=== PATIENT | male | born 1940 | race Caucasian/White ===

== ENCOUNTER 2020-07-29 21:18 | Emergency (ER) | payer MEDICARE, OTHER ==
[~2020-07-29] VITALS: Ht 188 cm; Wt 116.5 kg
[2020-07-29 21:25] VITALS: BP 128/61
--- NOTE | 2020-07-29 22:01 | PHYS DOC ---
General Adult EDM: Chief Complaint: COUGH HPI: HPI: ".. My and I fell asleep in our recliner nurse yesterday... And when we woke up it was cold and we seem to be having a bit of a chill... I was feeling little bit off so I thought I did come in and get checked out..." Patient is a 79 year old male who presents with above hx and complaints subjective history of fever and chills. No recent travel or specific ill contacts. has history of Alzheimer's. Patient denies any recent travel outside the [facility]. Patient states he is normally healthy. Does have some complaints of arthritis, hypertension, diabetes, prostate enlargement, seasonal sinus complaints.. Has had a nonproductive cough since yesterday. Did have a short coughing spell tonight. Patient normally follows with Dr. Bryan. Review of Systems: Review of Systems: Constitutional: Denies fever or chills Eyes: Denies change in visual acuity HENT: Denies nasal congestion or sore throat Respiratory: Complains of cough Cardiovascular: Denies chest pain or edema GI: Denies abdominal pain, nausea, vomiting, bloody stools or diarrhea : Denies dysuria Musculoskeletal: Denies back pain or joint pain Integument: Denies rash Neurologic: Denies headache, focal weakness or sensory changes Endocrine: Denies polyuria or polydipsia Lymphatic: Denies swollen glands Psychiatric: Denies depression or anxiety Heart Score: HEART Score for Chest Pain: HEART Score for Chest Pain Response (Comments) Value History Slighlty/Non-Suspicious 0 ECG Nonspecific Repolarizatio 1 Age > 65 2 Risk Factors 1 or 2 Risk Factors 1 Total 4 Risk Factors: Risk Factors: DM, Current or recent (<one month) smoker, HTN, HLP, family history of CAD, obesity. Risk Scores: Score 0 - 3: 2.5% MACE over next 6 weeks - Discharge Home Score 4 - 6: 20.3% MACE over next 6 weeks - Admit for Clinical Observation Score 7 - 10: 72.7% MACE over next 6 weeks - Early Invasive Strategies Family History: Family History: has Alzheimer's also has a complaint of fever Current Medications: Current Meds: See nursing for home meds Allergies: Allergies: No known drug allergies Physical Exam: PE: Constitutional: no acute distress, non-toxic appearance. [] HENT: Normocephalic, atraumatic, bilateral external ears normal, oropharynx moist, no oral exudates, nose slightly swollen turbinates and clear rhinorrhea Eyes: PERRLA, EOMI, conjunctiva normal, no discharge. [] Neck: Normal range of motion, no tenderness, supple, no stridor. [] Cardiovascular:Heart rate regular rhythm, no murmur, occasional PVC on monitor monitor Lungs & Thorax: Bilateral breath sounds equal apex with few scattered wheezes on auscultation [] Abdomen: Bowel sounds normal, soft, no tenderness, no masses, no pulsatile masses. Large old surgery scar Skin: Warm, dry, no erythema, no rash. Poor turgor Back: No tenderness, no CVA tenderness. [] Extremities: No tenderness, no cyanosis, no clubbing, ROM intact, no edema. Arthritic changes Neurologic: Alert and oriented X 3, moves all extremities on request, has distal sensory,, no focal deficits noted. [] Psychologic: Affect anxious, judgement normal, mood normal. [] EKG: EKG: [][facility] My interpretation EKG shows a sinus bradycardia at 62 bpm. Right bundle branch block. No findings acute STEMI with contralateral changes. Does have low voltage. [address] [place] [id number] Radiology/Procedures: Radiology/Procedures: [][address] [address] IMAGING REPORT Signed PATIENT: JOHN ALARCON CACCOUNT: [id number] : 1940 LOCATION: ER AGE: 79 SEX: M EXAM STATUS: PRE ER ORD. PHYSICIAN: RADHA CAMPOVERDE MD REASON: cough PROCEDURE: CHEST PA & LATERAL Exam: Chest 2 views INDICATION: Cough TECHNIQUE: Frontal and lateral views the chest Comparisons: None FINDINGS: The cardiomediastinal silhouette and pulmonary vessels are within normal limits. The lung and pleural spaces are clear. IMPRESSION: No acute cardiopulmonary process. Electronically signed by: Nikunj Tovar MD (07/29/2020 10:39 PM) [facility] DICTATED AND SIGNED BY: NIKUNJ TOVAR MD DATE: 07/29/20 2239 CC: RADHA CAMPOVERDE MD; DAE BRYAN MD ~ Course & Med Decision Making: Course & Med Decision Making Pertinent Labs and Imaging studies reviewed. (See chart for details) Pt. refused further attempts at blood draw. Patient use MDI 2 puffs 4 times a day. Patient take Tylenol and ibuprofen for discomfort. Patient follow-up primary care. Return if he elects to allow blood draws. Recommend patient self isolate. Consider COVID testing after self- isolation for 10 days. Follow up with Dr. Bryan. Impression: 1. Viral syndrome [] Dragon Disclaimer: Elizabeth Disclaimer: This electronic medical record was generated, in whole or in part, using a voice recognition dictation system. Departure Departure: Disposition: 01 HOME/RESIDENCE PRIOR TO ADM Condition: STABLE Referrals: DAE BRYAN MD (PCP) Dragon Disclaimer This chart was dictated in whole or in part using Voice Recognition software in a busy, high-work load, and often noisy Emergency Department environment. It may contain unintended and wholly unrecognized errors or omissions. RADHA CAMPOVERDE MD Jul 29, 2020 22:01
[2020-07-29] MEDS ORDERED: ALBUTEROL SULFATE 8GM INHALER. INH ONE (22:15)
[2020-07-29] MEDS ORDERED: ASPIRIN CHEWABLE 81 MG TABLET. PO ONE (22:15)
--- NOTE | 2020-07-29 22:42 | RAD ---
Exam: Chest 2 views INDICATION: Cough TECHNIQUE: Frontal and lateral views the chest Comparisons: None FINDINGS: The cardiomediastinal silhouette and pulmonary vessels are within normal limits. The lung and pleural spaces are clear. IMPRESSION: No acute cardiopulmonary process. Electronically signed by: Nikunj Bridges MD (07/29/2020 10:39 PM) [facility]
--- NOTE | 2020-07-29 23:31 | EKG ---
[address] [address] Test Date: 2020-07-29 Test Time: 22:33:14 Pat Name: JOHN ALARCON Department: Room: Gender: M Manager Banking: LAWRENCE : 1940 Requested By: RADHA CAMPOVERDE Order Number: [id number] Reading MD: Measurements Intervals [place] Rate: 62 P: 90 NC: 206 QRS: 27 QRSD: 134 T: 31 QT: 458 QTc: 467 Interpretive Statements SINUS RHYTHM RIGHT BUNDLE BRANCH BLOCK ABNORMAL ECG RI6.02 No previous ECG available for comparison
[2020-07-30 00:41] LABS: BILIRUBIN,URINE NEG (NEG); CLARITY,URINE CLEAR; COLOR,URINE YELLOW; GLUCOSE,URINE NEG (NEG); NITRITE,URINE NEG (NEG); UROBILINOGEN,URINE 0.2 mg/dL (0.2 mg/dL)
[2020-07-30 00:42] LABS: BACTERIA,URINE FEW /HPF (0-FEW); RBC,URINE 0 /HPF (0-2); SQUAMOUS EPITHELIAL CELL,UR FEW /LPF; WBC,URINE 0 /HPF (0-4)
[2020-07-30 01:01] LABS: INFLUENZA A PATIENT NEGATIVE (NEGATIVE); INFLUENZA B PATIENT NEGATIVE (NEGATIVE)
== END 2020-07-30 01:10 | disposition home or self-care (01) ==
LOC: ER 21:18
DX: B34.9 Viral infection, unspecified (principal); M19.90 Unspecified osteoarthritis, unspecified site; I10 Essential (primary) hypertension; E11.9 Type 2 diabetes mellitus without complications; G30.9 Alzheimer's disease, unspecified
CPT/HCPCS: 71046; 81001; 87070; 87804; 87880; 93005; 94640; 99285; J7613; 94664

== ENCOUNTER → 2021-01-24 | Outpatient (CLI) | payer MEDICARE, OTHER ==
[2021-01-24 11:07] LABS: ALBUMIN 3.8 g/dL (3.4-5.0); CALCIUM 9.2 mg/dL (8.5-10.1); CREATININE 1.2 mg/dL (0.7-1.3); GFR 58.6; POTASSIUM 3.8 mmol/L (3.5-5.1); TOTAL BILIRUBIN 0.6 mg/dL (0.2-1.0); TOTAL PROTEIN 7.7 g/dL (6.4-8.2)
[2021-01-25 00:08] LABS: MICROALB RD UR 107.1 ug/mL (Not Estab.)
== END ==
LOC: LAB 10:15
PROVIDERS: ATTEND Internal Medicine
DX: E11.9 Type 2 diabetes mellitus without complications (principal)
CPT/HCPCS: 80053; 80061; 82043; 82570; 83036

== ENCOUNTER 2021-11-15 17:56 | Inpatient (IN) | payer MEDICARE, OTHER ==
[~2021-11-15] VITALS: Ht 188 cm; Wt 113.4 kg
[2021-11-15 18:48] LABS: BASO % 1 % (0-3); EOS % 0 % (0-3); HEMATOCRIT 40.9 % (39.0-53.0); HEMOGLOBIN 13.6 g/dL (13.0-17.5); LYMPH # 0.7 x10^3/uL (1.0-4.8); LYMPH % 8 % (24-48); MEAN CORPUSCULAR HEMOGLOBIN 30 pg (25-35); MEAN CORPUSCULAR HGB CONC 33 g/dL (31-37); MEAN CORPUSCULAR VOLUME 90 fL (79-100); MONO # 0.8 x10^3/uL (0.0-1.1); MONO % 10 % (0-9); NEUT # 6.6 x10^3uL (1.8-7.7); NEUT % 82 % (31-73); PLATELET COUNT 221 x10^3/uL (140-400); RED BLOOD COUNT 4.52 x10^6/uL (4.30-5.70); RED CELL DISTRIBUTION WIDTH 15.9 % (11.5-14.5); WHITE BLOOD COUNT 8.1 x10^3/uL (4.0-11.0)
[2021-11-15 18:59] LABS: CALCIUM 8.5 mg/dL (8.5-10.1); CREATININE 1.2 mg/dL (0.7-1.3); GFR 58.6; POTASSIUM 3.6 mmol/L (3.5-5.1)
[2021-11-15 19:05] LABS: ALBUMIN 3.5 g/dL (3.4-5.0); ALBUMIN/GLOBULIN RATIO 1.1 (1.0-1.7); TOTAL BILIRUBIN 0.5 mg/dL (0.2-1.0); TOTAL PROTEIN 6.6 g/dL (6.4-8.2)
--- NOTE | 2021-11-15 19:31 | RAD ---
EXAMINATION: CT head without IV contrast. INDICATION:80 years, Male, falling down, on blood thinner. COMPARISON: None TECHNIQUE: Spiral acquisition of contiguous images from the skull base to the vertex were obtained. S agittal and coronal 2D reformatted series were provided by the technologist. Soft tissue and bone win natacha algorithms were reviewed. Exposure: One or more of the following individualized dose reduction techniques were utilized for [facility] s examination: 1. Automated exposure control 2. Adjustment of the mA and/or kV according to patient size 3. Use of iterative reconstruction technique. FINDINGS: Neither mass, midline shift, intracranial hemorrhage, acute/subacute ischemic changes, nor extraaxial fluid collections are seen. Mild brain parenchymal volume loss. Mild supratentorial periventricular white matter hypodensities, indeterminate but most likely representing chronic microangiopathic disea se. The paranasal sinuses, mastoid air cells, and middle ears are clear.The orbital contents appear withi n normal limits. IMPRESSION: No evidence of acute intracranial abnormality. EXAMINATION: CT abdomen and pelvis without IV contrast. INDICATION:80 years, Male, syncope, falling down. TECHNIQUE: Axial CT images of the abdomen and pelvis were obtained. Coronal and sagittal reformatted performed. COMPARISON: None. Exposure: One or more of the following individualized dose reduction techniques were utilized for [facility] s examination: 1. Automated exposure control 2. Adjustment of the mA and/or kV according to patient size 3. Use of iterative reconstruction technique. FINDINGS: LOWER CHEST: Dependent subsegmental atelectasis. ABDOMEN/PELVIS: Within the limitation of noncontrast exam and motion artifact, Liver, spleen, and biliary ducts are unremarkable. Pancreatic atrophy with fat infiltration. Cholecys tectomy. Nodular thickening of the left adrenal gland without discrete nodule. Right adrenal gland is unremarkable. No hydronephrosis or nephrolithiasis in either kidney. Duplicated left renal collectin g system. Nonspecific bilateral perinephric fat stranding. Extensive colonic diverticulosis without acute diverticulitis. Normal appendix. Moderate amount of st ool in the rectum. No bowel obstruction. Focal wall thickening of the sigmoid colon without adjacent pericolonic fat stranding. Moderate aortoiliac atherosclerotic calcifications without dilatation. No lymphadenopathy. No pneumoperitoneum or ascites. Unremarkable urinary bladder. Prostatectomy. MUSCULOSKELETAL STRUCTURES: No acute osseous process. Multilevel degenerative changes in the lumbar spine. IMPRESSION: 1. No acute abnormality in the abdomen or pelvis. 2. Focal wall thickening of the sigmoid colon without adjacent inflammation, may relate to underdiste nded lumen. Recommend further evaluation with colonoscopy to exclude malignancy. 3. Extensive colonic diverticulosis without acute diverticulitis. 4. Moderate amount of stool in the rectum. - EXAMINATION: Chest radiograph. VIEWS: Single view COMPARISON: 07/29/2020 INDICATION:80 years, Male, trauma.. FINDINGS: Stable cardiomediastinal silhouette. No focal consolidation. No pleural effusion or pneumothorax. No acute osseous process. IMPRESSION: No acute cardiopulmonary process. Electronically signed by: Pina Oreilly MD (11/15/2021 7:29 PM) [facility]
--- NOTE | 2021-11-15 20:16 | EKG ---
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
[2021-11-15] MEDS ORDERED: CONTRAST GIVEN. MC PRN (21:00)
[2021-11-15] MEDS ORDERED: IOHEXOL 350 MG/ML 100 ML VIAL. IV ONE (21:30)
--- NOTE | 2021-11-15 21:48 | PHYS DOC ---
Past History Past Medical History: Arrhythmia, Diabetes, High Cholesterol, Hypertension Past Surgical History: Cholecystectomy, Other Additional Past Surgical Histo: prostatectom for cancer of prostate; wisdom teeth Alcohol Use: None Adult General Chief Complaint Chief Complaint: MECHANICAL FALL HPI HPI Patient is a 80-year-old male with a past medical history of diabetes, hypertension and hyperlipidemia who presents with a chief complaint generalized weakness and is legs and falling 2 times. Review of Systems Review of Systems Review of systems otherwise unremarkable except noted in HPI Current Medications Current Medications Current Medications Medications (Trade) Dose Ordered Sig/Lauren Start Time Stop Time Status Last Admin Dose Admin Iohexol (Omnipaque 350 Mg/ml) 100 ml 1X ONCE 11/15/21 21:30 11/15/21 21:31 DC 11/15/21 21:29 100 ML Allergies Allergies Allergies Coded Allergies Type Severity Reaction Last Updated Verified No Known Drug Allergies 07/29/20 No Physical Exam Physical Exam Constitutional: Well developed, well nourished, no acute distress, non-toxic appearance. [] HENT: Normocephalic, atraumatic, bilateral external ears normal, oropharynx moist, no oral exudates, nose normal. [] Eyes: PERRLA, EOMI, conjunctiva normal, no discharge. [] Neck: Normal range of motion, no tenderness, supple, no stridor. [] Cardiovascular:Heart rate regular rhythm, no murmur [] Lungs & Thorax: Bilateral breath sounds clear to auscultation [] Abdomen: Bowel sounds normal, soft, no tenderness, no masses, no pulsatile masses. [] Skin: Warm, dry, no erythema, no rash. [] Back: No tenderness, no CVA tenderness. [] Extremities: No tenderness, no cyanosis, no clubbing, ROM intact, no edema. [] Neurologic: Alert and oriented X 3, normal motor function, normal sensory function, able to sit lay down and sit up, able to stand but feels weak like he is going to fall, cranial nerves intact no focal deficits noted, NIH of 2 for bilateral lower extremity drift but does not hit bed. [] Psychologic: Affect normal, judgement normal, mood normal. [] Current Patient Data Vital Signs Vital Signs Date Time Temp Pulse Resp B/P (MAP) Pulse Ox O2 Delivery O2 Flow Rate FiO2 11/15/21 18:39 98.5 100 18 127/63 (84) 96 Lab Results Laboratory Tests Test 11/15/21 18:27 11/15/21 20:41 White Blood Count 8.1 x10^3/uL (4.0-11.0) Red Blood Count 4.52 x10^6/uL (4.30-5.70) Hemoglobin 13.6 g/dL (13.0-17.5) Hematocrit 40.9 % (39.0-53.0) Mean Corpuscular Volume 90 fL (79-100) Mean Corpuscular Hemoglobin 30 pg (25-35) Mean Corpuscular Hemoglobin Concent 33 g/dL (31-37) Red Cell Distribution Width 15.9 % (11.5-14.5) H Platelet Count 221 x10^3/uL (140-400) Neutrophils (%) (Auto) 82 % (31-73) H Lymphocytes (%) (Auto) 8 % (24-48) L Monocytes (%) (Auto) 10 % (0-9) H Eosinophils (%) (Auto) 0 % (0-3) Basophils (%) (Auto) 1 % (0-3) Neutrophils # (Auto) 6.6 x10^3uL (1.8-7.7) Lymphocytes # (Auto) 0.7 x10^3/uL (1.0-4.8) L Monocytes # (Auto) 0.8 x10^3/uL (0.0-1.1) Eosinophils # (Auto) 0.0 x10^3/uL (0.0-0.7) Basophils # (Auto) 0.0 x10^3/uL (0.0-0.2) Prothrombin Time 11.9 SEC (9.4-11.4) H Prothrombin Time INR 1.1 (0.9-1.1) Activated Partial Thromboplast Time 33 SEC (23-33) Sodium Level 139 mmol/L (136-145) Potassium Level 3.6 mmol/L (3.5-5.1) Chloride Level 99 mmol/L (98-107) Carbon Dioxide Level 29 mmol/L (21-32) Anion Gap 11 (6-14) Blood Urea Nitrogen 11 mg/dL (8-26) Creatinine 1.2 mg/dL (0.7-1.3) Estimated GFR (Cockcroft-Gault) 58.6 BUN/Creatinine Ratio 9 (6-20) Glucose Level 133 mg/dL (70-99) H Calcium Level 8.5 mg/dL (8.5-10.1) Total Bilirubin 0.5 mg/dL (0.2-1.0) Aspartate Amino Transferase (AST) 18 U/L (15-37) Alanine Aminotransferase (ALT) 20 U/L (16-63) Alkaline Phosphatase 80 U/L (46-116) Troponin I High Sensitivity 18 ng/L (4-75) Total Protein 6.6 g/dL (6.4-8.2) Albumin 3.5 g/dL (3.4-5.0) Albumin/Globulin Ratio 1.1 (1.0-1.7) D-Dimer ([place]) 1.03 mg/L (0.00-0.50) H EKG EKG [] Radiology/Procedures Radiology/Procedures [] FINDINGS: LOWER CHEST: Dependent subsegmental atelectasis. ABDOMEN/PELVIS: Within the limitation of noncontrast exam and motion artifact, Liver, spleen, and biliary ducts are unremarkable. Pancreatic atrophy with fat infiltration. Cholecystectomy. Nodular thickening of the left adrenal gland without discrete nodule. Right adrenal gland is unremarkable. No hydronephrosis or nephrolithiasis in either kidney. Duplicated left renal collecting system. Nonspecific bilateral perinephric fat stranding. Extensive colonic diverticulosis without acute diverticulitis. Normal appendix. Moderate amount of stool in the rectum. No bowel obstruction. Focal wall thickening of the sigmoid colon without adjacent pericolonic fat stranding. Moderate aortoiliac atherosclerotic calcifications without dilatation. No lymphadenopathy. No pneumoperitoneum or ascites. Unremarkable urinary bladder. Prostatectomy. MUSCULOSKELETAL STRUCTURES: No acute osseous process. Multilevel degenerative changes in the lumbar spine. IMPRESSION: 1. No acute abnormality in the abdomen or pelvis. 2. Focal wall thickening of the sigmoid colon without adjacent inflammation, may relate to underdistended lumen. Recommend further evaluation with colonoscopy to exclude malignancy. 3. Extensive colonic diverticulosis without acute diverticulitis. 4. Moderate amount of stool in the rectum. FINDINGS: Any determination of stenosis is based on NASCET criteria. Head CTA: ICA: No stenosis, occlusion or aneurysm. MCA: No stenosis, occlusion or aneurysm. AMOL: No stenosis, occlusion or aneurysm. SECURITY INVESTIGATOR: No stenosis, occlusion or aneurysm. Basilar artery: No stenosis, occlusion or aneurysm. Distal vertebral arteries: No stenosis, occlusion or aneurysm. CT angiogram neck: Aortic arch: Classic anatomy Common carotid arteries: No stenosis, occlusion or dissection. Internal carotid arteries: No stenosis, occlusion or dissection. External carotid arteries: Patent Vertebral arteries: No stenosis, occlusion or dissection. Imaged lung apices demonstrates minimal paraseptal emphysema in the right lung apex. Pleural-based punctate calcifications in the right side. Soft tissues appear normal. Bones: No pathologic osseous lesions. Multilevel degenerative changes in the spine. IMPRESSION: No arterial stenosis or occlusion within the head or neck. Heart Score C/O Chest Pain: No Risk Factors: Risk Factors: DM, Current or recent (<one month) smoker, HTN, HLP, family history of CAD, obesity. Risk Scores: Risk Factors: DM, Current or recent (<one month) smoker, HTN, HLP, family history of CAD, obesity. Course & Med Decision Making Course & Med Decision Making Patient is a 80-year-old male who presents with bilateral lower extremity weakness and falls today Vital signs notable for tachycardia. Physical exam noted above. Patient placed on the monitor with IV access established. EKG with a rate of 90, QRS of 132, QTc of 454, no STEMI but right bundle branch block and widened QRS. Troponin normal. Laboratory analysis not concerning. CT of the head normal. CTA of the head and neck not concerning. Chest x-ray nonconcerning. Patient alert and oriented no acute distress and otherwise asymptomatic except for feeling unsteady on his feet. Discussed all findings with family and recommended an MRI and neurologic consult given the fact that he still feels unsteady on his feet bilaterally. Family grateful, verbalized understanding and agreed with plan of admission. Discussed patient with hospitalist here at [facility] to admit for observation tonight and hopefully get him over for an MRI to [place] sometime tomorrow. Dr. Harrison agreed to this plan. [] Dragon Disclaimer Dragon Disclaimer This electronic medical record was generated, in whole or in part, using a voice recognition dictation system. Departure Departure: Impression: Primary Impression: Lower extremity weakness Disposition: HOME / SELF CARE / HOMELESS Admitting Physician: Leonora Grissom Condition: GOOD Referrals: DAE BRYAN MD (PCP) TOLU BYRD MD Nov 15, 2021 21:48
--- NOTE | 2021-11-15 22:04 | RAD ---
EXAMINATION: CTA HEAD AND NECK W/WO CONTRAST INDICATION:80 years, Male, gait ataxia, weakness. TECHNIQUE: After bolus of intravenous contrast, volumetric CT data acquisition was acquired of the he ad and neck. Multiplanar reconstruction images to include MIP and 3-D reconstruction images are submi tted. Exposure: One or more of the following individualized dose reduction techniques were utilized for thi s examination: 1. Automated exposure control 2. Adjustment of the mA and/or kV according to patient size 3. Use of iterative reconstruction technique. COMPARISON: None FINDINGS: Any determination of stenosis is based on NASCET criteria. Head CTA: ICA: No stenosis, occlusion or aneurysm. MCA: No stenosis, occlusion or aneurysm. AMOL: No stenosis, occlusion or aneurysm. SECTION REPAIRER: No stenosis, occlusion or aneurysm. Basilar artery: No stenosis, occlusion or aneurysm. Distal vertebral arteries: No stenosis, occlusion or aneurysm. CT angiogram neck: Aortic arch: Classic anatomy Common carotid arteries: No stenosis, occlusion or dissection. Internal carotid arteries: No stenosis, occlusion or dissection. External carotid arteries: Patent Vertebral arteries: No stenosis, occlusion or dissection. Imaged lung apices demonstrates minimal paraseptal emphysema in the right lung apex. Pleural-based pu nctate calcifications in the right side. Soft tissues appear normal. Bones: No pathologic osseous lesions. Multilevel degenerative changes in the spine. IMPRESSION: No arterial stenosis or occlusion within the head or neck. Electronically signed by: Pina Oreilly MD (11/15/2021 10:02 PM) [facility]
[2021-11-16 00:51] LABS: BILIRUBIN,URINE NEG (NEG); CLARITY,URINE CLEAR; COLOR,URINE YELLOW; GLUCOSE,URINE NEG (NEG); NITRITE,URINE POS (NEG); UROBILINOGEN,URINE 0.2 mg/dL (0.2 mg/dL)
[2021-11-16 00:52] LABS: BACTERIA,URINE MANY /HPF (0-FEW); SQUAMOUS EPITHELIAL CELL,UR MOD /LPF
[2021-11-16 01:34] VITALS: BP 107/57
[2021-11-16 05:42] VITALS: BP 119/61
[2021-11-16] MEDS ORDERED: METF10007 PO (06:35)
[2021-11-16] MEDS ORDERED: CHLO25TA9 PO (06:35)
[2021-11-16] MEDS ORDERED: GABA-585 PO (06:35)
[2021-11-16] MEDS ORDERED: LISI40TA6 PO (06:35)
[2021-11-16] MEDS ORDERED: PIOG30TA41 PO (06:35)
[2021-11-16] MEDS ORDERED: GUAI600T47 PO (06:35)
[2021-11-16] MEDS ORDERED: DABI150C PO (06:35)
[2021-11-16] MEDS ORDERED: ATOR40TA59 PO (06:35)
[2021-11-16] MEDS ORDERED: ASPI-889 PO (06:35)
[2021-11-16] MEDS ORDERED: SOTA80TA48 PO (06:35)
[2021-11-16] MEDS ORDERED: GLIM4TAB8 PO (06:35)
[2021-11-16 11:32] VITALS: BP 116/69
--- NOTE | 2021-11-16 11:52 | HP ---
DATE OF SERVICE: 11/16/2021 ADMIT DATE: 11/16/2021 ATTENDING PHYSICIAN: Dr. Harrison. CHIEF COMPLAINT: Weakness and falls. HISTORY OF PRESENT ILLNESS: The patient is a 80-year-old gentleman admitted through the ED with vague symptoms of generalized weakness in both legs and falling. He is diabetic. The workup in the ED was fairly unremarkable. CT of the head demonstrated no strokes or bleeds. The chest x-ray was clear. I did review his medication. Blood pressure was marginal. I suspect he is also a little orthostatic. He was admitted then for further treatment and evaluation. He has pain and weakness in the legs that is gradual. He is diabetic. I suspect he has diabetic neuropathy. A formal neurology consultation has been entertained. PAST MEDICAL HISTORY: Significant for type 2 diabetes, although he is in somewhat denial. He also has coronary artery disease, essential hypertension. CURRENT MEDICATIONS: As follows: He takes Pradaxa daily, Lipitor, Betapace, lisinopril, aspirin, Neurontin, chlorthalidone, guaifenesin, metformin, glimepiride and Actos. SOCIAL HISTORY: He is a nonsmoker, nondrinker. ALLERGIES: He has no known drug allergies. FAMILY HISTORY: Noncontributory. 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 His just of Alzheimer's dementia exactly a year ago. He has a daughter who lives close by. REVIEW OF SYSTEMS: All other systems reviewed and turned to be negative. He has a positive COVID test, which is an incidental finding. He has been fully vaccinated. He does not have COVID symptoms at this time, although he did test positive. PHYSICAL EXAMINATION: GENERAL: When I saw him, this is a pleasant elderly gentleman. VITAL SIGNS: Initial vital signs showed a blood pressure of 107/57, pulse is 94 and regular. He was afebrile, oxygen saturation 95% on room air. HEENT: Head is without trauma. Pupils are reactive. Sclerae nonicteric. Oropharynx clear. NECK: Supple, no bruits. LUNGS: Clear. CARDIOVASCULAR: Showed regular heart tones. ABDOMEN: Soft. EXTREMITIES: Without edema. NEUROLOGIC: He is able to move his legs up against gravity, but he cannot keep it up against pressure. He has 4+/5 strength. There is minimal edema. He is fully ambulatory, but he has generalized weakness. IMAGING STUDIES: As noted. PERTINENT LABORATORY STUDIES: His hemoglobin on admission was 13.6 grams, white count 8100. Chemistry panel unremarkable. Nonfasting blood sugar 133. Transaminases were normal. Troponin was negative. ASSESSMENT: 1. 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 2. Probable orthostatic hypotension. 3. Known coronary artery disease. 4. Chronic anticoagulation. 5. Essential hypertension. 6. Type 2 diabetes. PLAN: 1. Admit to the inpatient unit. 2. Formal neurology consultation to assess neuropathy. 3. Continue home meds. 4. I have held his lisinopril. 5. Long discussion with current issues regarding his expectations. He is angry and cannot accept the fact that he is getting older. I tried to explain to him that these are some conditions may be reversible. LUÍS DR: Nel TID: [id number] CC: Brennan Carrillo MD
[2021-11-16] MEDS: GABAPENTIN 100 MG CAPSULE. PO SCH ×2 (13:53→20:43)
[2021-11-16 16:29] VITALS: BP 107/66
[2021-11-16 19:47] VITALS: BP 113/62
[2021-11-16] MEDS: DABIGATRAN ETEXILATE 150 MG CAPSULE. PO SCH (20:43)
[2021-11-16] MEDS: ATORVASTATIN CALCIUM 20 MG TABLET PO SCH (20:43)
[2021-11-16] MEDS: SOTALOL 80 MG TABLET. PO SCH (20:43)
[2021-11-16 23:49] VITALS: BP 110/64
[2021-11-17 05:58] VITALS: BP 108/66
--- NOTE | 2021-11-17 07:34 | CONS ---
DATE OF CONSULTATION: 11/16/2021 NEUROLOGICAL CONSULTATION REFERRING PHYSICIAN: Dr. Harrison. REASON FOR CONSULTATION: Frequent falls and numbness of the toes. HISTORY OF PRESENT ILLNESS: This is a 80-year-old right-handed male who was admitted through Emergency Room after he presented with frequent falls on the day of admission. According to the patient, he fell 3 times yesterday. He complains of intermittent numbness and paresthesia of the toes. He denies any headaches, visual disturbances, slurred speech, weakness of the lower extremities, lower back pain or recent back injuries. According to the patient, he denies any symptoms prior to his fall. He said his leg just gave up on him while he was standing. Currently, he denies chest pain, shortness of breath or palpitation; however, he has been seen by documentum consultant at [facility] and he was told that a stress test and echocardiogram were negative. He does not have any cardiac catheterization, but he has history of coronary artery disease. PAST MEDICAL HISTORY: Significant for diabetes mellitus type 2, coronary artery disease, hypertension and hyperlipidemia. FAMILY HISTORY: His from Alzheimer's disease, otherwise noncontributory. SOCIAL HISTORY: The patient is . He smokes 1-2 packs of cigarettes daily. He used to be a heavier smoker of 4 packs daily. He denies alcohol drinking. CURRENT MEDICATIONS: Metformin 1000 mg b.i.d., Actos 30 mg daily, Amaryl 4 mg p.o. daily, aspirin 81 mg daily, Lipitor 40 mg daily, sotalol or Betapace 120 mg b.i.d., Mucinex 600 mg b.i.d., Pradaxa 150 mg b.i.d. and gabapentin 100 mg b.i.d. ALLERGIES: No known drug allergies. PHYSICAL EXAMINATION: GENERAL: Obese male in no acute distress. He weighs 115.2 kilos. VITAL SIGNS: Blood pressure 130/62, respiratory rate 18, pulse is 81, temperature 97.6, oxygen saturation 94% on room air. HEENT: Normocephalic, atraumatic. Otherwise unremarkable. NECK: Supple, negative for carotid bruit, lymphadenopathy or thyromegaly. LUNGS: Diminished breath sounds with scattered wheezing. CARDIOVASCULAR: Regular rate and rhythm, normal S1, S2. There is no S3, S4 or murmur. ABDOMEN: Soft. Bowel sounds positive. EXTREMITIES: Negative for cyanosis, clubbing or pedal edema. NEUROLOGIC: Mental status: The patient is alert and oriented x3. The speech is fluent. There is no language dysfunction. Memory, judgment and abstracting thinking are normal. The patient denies hallucination or delusion. Cranial nerves: Visual anderson are full. The pupils are reactive to light and accommodation. The extraocular movements are intact. There is no nystagmus. There is no facial motor or sensory deficit. Hearing is diminished bilaterally. The palate is elevated symmetrically. Sternocleidomastoid muscles are powerful bilaterally. The patient shrugs his shoulders symmetrically, protrudes his tongue in the midline without fasciculation or atrophy. Motor exam: No focal muscle bulk wasting. The tone is normal. The strength is 5/5 throughout. Sensory examination revealed normal pinprick, light touch, vibratory and position senses. Deep tendon reflexes were asymmetric and active with hyporeflexia of the Achilles responses. Gait: The stance is steady, but Romberg's sign is positive. The patient uses a walker for ambulation and the stance is steady with walker. LABORATORY DATA: CBC revealed white blood cells of 8.1 thousand, hemoglobin 13.6, hematocrit 40.9, platelet count 221,000. Chemistry revealed sodium of 139, potassium 3.6, chloride 99, CO2 of 29, BUN 11, creatinine 1.2, glucose 133, calcium 8.5, troponin level is 18. Urinalysis revealed a trace of urinary leukocyte esterase with white blood cells of 11-20, with many urine bacteria. Serology, rapid COVID is positive. IMAGING: Head CT scan revealed no evidence of acute intracranial process, but shows small vessel ischemic changes. A CT angio of the neck and head revealed no evidence of occlusion or aneurysms. Chest x-ray revealed no acute cardiopulmonary process and CT of the abdomen revealed focal wall thickening of the sigmoid colon with chronic diverticulosis without acute diverticulitis. IMPRESSION: 1. Longstanding history of diabetes mellitus with intermittent numbness and paresthesia of the toes, rule out diabetic peripheral neuropathy, may have contributed to the recurrent falls. Other etiology of his falls include orthostatic hypotension or medication side effects. 2. History of coronary artery disease; however, the patient has not had cardiac catheterization. 3. Multiple medical problems include hypertension, hyperlipidemia, gastroesophageal reflux disease, chronic smoking and chronic diverticulosis. 4. Positive COVID test. The patient is fully vaccinated and he is asymptomatic. We will await for PCR COVID test. RECOMMENDATIONS: 1. Continue with current management initiated by Dr. Harrison. 2. Await for COVID PCR test. 3. We will arrange for EMG/NCS of the lower extremities to rule out peripheral neuropathy. 4. Check blood pressure and pulse for possible orthostatic hypotension. 5. Physical therapy evaluation. 6. Await for urine culture to rule out urinary tract infection. NAOMI/SILVESTRE/KONRAD DR: Tab TID: [id number]
[2021-11-17] MEDS: ASPIRIN ENTERIC COATED 81 MG TABLET.DR. PO SCH (08:49)
[2021-11-17] MEDS: GABAPENTIN 100 MG CAPSULE. PO SCH ×3 (08:49→21:07)
[2021-11-17] MEDS: PIOGLITAZONE 15 MG TABLET. PO SCH (08:49)
[2021-11-17] MEDS: GLIMEPIRIDE 2 MG TABLET PO SCH (08:50)
[2021-11-17] MEDS: SOTALOL 80 MG TABLET. PO SCH ×3 (08:51→21:07)
[2021-11-17] MEDS: DABIGATRAN ETEXILATE 150 MG CAPSULE. PO SCH ×2 (08:52→21:07)
[2021-11-17 10:55] VITALS: BP 111/65
[2021-11-17] MEDS: guaiFENesin/CODEINE 100mg/10mg 5 ML LIQUID PO PRN ×2 (11:35→17:25)
[2021-11-17 15:11] VITALS: BP 118/68
[2021-11-17 19:20] VITALS: BP 123/68
[2021-11-17] MEDS: ATORVASTATIN CALCIUM 20 MG TABLET PO SCH (21:08)
--- NOTE | 2021-11-17 22:25 | PN ---
DATE: 11/17/2021 ATTENDING PHYSICIAN: Dr. Harrison. SUBJECTIVE: He is slightly better. He is still weak. He was able to ambulate with some assistance. He spoke with the physical therapy people. He is now agreeable to go to rehab facility. OBJECTIVE FINDINGS: VITAL SIGNS: Blood pressure this morning is still 108/66 mmHg, pulse is 78 and regular. He is afebrile and his oxygen saturation 92% on room air. HEENT: Head is without trauma. Pupils are reactive. Sclerae nonicteric. Oropharynx clear. NECK: Supple, no bruits. LUNGS: Clear. CARDIOVASCULAR: Showed regular heart tones. No gallops. ABDOMEN: Soft. EXTREMITIES: Show trace edema. NEUROLOGIC: Minimal weakness in both legs, not too severe. SKIN: Otherwise, warm and dry. ASSESSMENT: 1. A 80-year-old gentleman with weakness due to peripheral neuropathy, most likely on the basis of diabetes. 2. Orthostatic hypotension, slightly improved. 3. Known coronary artery disease. 4. Chronic anticoagulation. 5. Essential hypertension. 6. Type 2 diabetes. PLAN: 1. I took the liberty of decreasing his Betapace dose down from 120 mg down to 80 mg b.i.d. 2. We held his chlorthalidone. 3. Continue diabetic regimen. 4. We will look at various facilities for subacute rehabilitation. The deal breaker is going to be his COVID status. RONALD/EKT : RONALD/richard TID: [id number]
[2021-11-17 22:51] VITALS: BP 124/62
[2021-11-18] MEDS: guaiFENesin/CODEINE 100mg/10mg 5 ML LIQUID PO PRN ×4 (00:47→20:41)
--- NOTE | 2021-11-18 03:03 | PN ---
DATE: 11/17/2021 SUBJECTIVE: The patient denies any new medical or neurological complaints; however, he continues to have generalized weakness. The patient stated he has been working with physical therapy today. He denies chest pain, shortness of breath or palpitation, dysarthria or dysphagia. The patient continued to have the tingling of the toes. OBJECTIVE: GENERAL: Well-developed, well-nourished male, in no acute distress. VITAL SIGNS: Temperature is 99.8, respiratory rate 20, pulse is 69 and regular, oxygen saturation 94% on room air and blood pressure 123/68. HEENT: Normocephalic, atraumatic, otherwise unremarkable. NECK: Supple. Negative for carotid bruit, lymphadenopathy or thyromegaly. LUNGS: With diminished breath sounds and intermittent wheezing and crackles also heard. CARDIOVASCULAR: Regular rate and rhythm. Normal S1, S2. ABDOMEN: Soft. Bowel sounds positive. EXTREMITIES: Negative for cyanosis, clubbing or pedal edema. NEUROLOGICAL: Normal mental status and intact cranial nerves. There is no focal motor or sensory deficit. Deep tendon reflexes were symmetric and hypoactive at 1/4 throughout. Deep tendon reflexes were symmetric and active with hyperreflexia of the Achilles responses. Gait: The stance is steady, but Romberg stance is positive. The patient uses a walker for ambulation. IMPRESSION: 1. Numbness and paresthesia of the feet in a patient with diabetes mellitus type 2, may represent early peripheral neuropathy. 2. Coronary artery disease, hypertension, hyperlipidemia. 3. Positive COVID test. RECOMMENDATIONS: 1. We will continue with current management initiated by Dr. Harrison. 2. Physical therapy as tolerated. 3. We will increase gabapentin to 100 mg 3 times daily and increase it gradually to 300 mg t.i.d. within coming one week or so. KOKO DR: Tab TID: [id number]
[2021-11-18 06:09] VITALS: BP 118/65
[2021-11-18 08:08] VITALS: BP 123/65
[2021-11-18] MEDS: SOTALOL 80 MG TABLET. PO SCH ×2 (08:08→20:42)
[2021-11-18] MEDS: GABAPENTIN 100 MG CAPSULE. PO SCH ×3 (08:08→20:42)
[2021-11-18] MEDS: DABIGATRAN ETEXILATE 150 MG CAPSULE. PO SCH ×2 (08:08→20:41)
[2021-11-18] MEDS: GLIMEPIRIDE 2 MG TABLET PO SCH (08:08)
[2021-11-18] MEDS: ASPIRIN ENTERIC COATED 81 MG TABLET.DR. PO SCH (08:08)
[2021-11-18] MEDS: PIOGLITAZONE 15 MG TABLET. PO SCH (08:10)
[2021-11-18] MEDS: metFORMIN 500 MG TABLET PO SCH ×2 (08:10→18:12)
[2021-11-18 11:00] VITALS: BP 118/58
--- NOTE | 2021-11-18 13:40 | PN ---
DATE: 11/18/2021 ATTENDING PHYSICIAN: Dr. Harrison. SUBJECTIVE: Feeling better. He is up ambulating. Legs are still a bit weak, but he is fairly independent. OBJECTIVE FINDINGS: VITAL SIGNS: Blood pressure this morning is 123/65, pulse is 68 and regular. He is afebrile. Oxygen saturation 97% on room air. HEENT: Head is without trauma. Pupils are reactive. Sclerae nonicteric. Oropharynx clear. NECK: Supple, no bruits. LUNGS: Clear. CARDIOVASCULAR: Regular heart tones. ABDOMEN: Soft. EXTREMITIES: Without edema. NEUROLOGIC: Focally intact. ASSESSMENT: 1. A 80-year-old gentleman with profound weakness due to diabetic neuropathy. 2. Cardiac arrhythmias. 3. Hypotension due to diuretics and meds. 4. Known coronary artery disease. 5. Chronic anticoagulation. 6. Essential hypertension. 7. Type 2 diabetes. 8. Asymptomatic COVID infection with the Omicron variant. PLAN: 1. He feels better with decreasing the Betapace dose from 120 mg b.i.d. to 80 mg b.i.d. 2. He feels better since we stopped his chlorthalidone. 3. Continue diabetic regimen. 4. Recs per physical therapy. 5. He has been approved for subacute rehab, but because of his COVID status, they want him quarantine for 10 days and will not be able to accept him until 11/25. Tentative plans are for discharge home with help through his family and paid assistance home health. Tentative discharge Saturday. We are still adjusting his medication. In addition, Recs per physical therapy. RONALD/DURGA/CANDACE DR: RONALD/richard TID: [id number] CC: Brennan Carrillo MD
[2021-11-18 15:00] VITALS: BP 122/64
[2021-11-18 19:22] VITALS: BP 124/73
[2021-11-18] MEDS: ATORVASTATIN CALCIUM 20 MG TABLET PO SCH (20:42)
--- NOTE | 2021-11-18 21:19 | PN ---
SUBJECTIVE: The patient denies any new medical or neurological complaints. He is very active and he did walk in the maier 7 times. He denies any new medical or neurological complaints. He continues to have intermittent numbness and paresthesia of the toes. The patient stated taking gabapentin 3 times a day, is somewhat helpful. He likes to continue with the same medication. OBJECTIVE: GENERAL: Well-developed, well-nourished male in no acute distress. VITAL SIGNS: Blood pressure 122/64, respiratory rate 20, pulse is 68, temperature is 97.1 and oxygen saturation 97% on room air. HEENT: Normocephalic, atraumatic. Otherwise unremarkable. NECK: Supple, negative for carotid bruit, lymphadenopathy or thyromegaly. LUNGS: Clear to A and P. CARDIOVASCULAR: Regular rhythm. Normal S1, S2. There is no S3, S4 or murmur. ABDOMEN: Soft. Bowel sounds positive. EXTREMITIES: Negative for cyanosis, clubbing or pedal edema. NEUROLOGIC: Mental status: The patient is alert and oriented x 3. The speech is fluent. There is no language dysfunction. Memory, judgment and abstracting thinking are normal. The patient denies hallucination or delusion. Cranial nerves are intact. No focal motor or sensory deficit. Deep tendon reflexes were symmetric and active without pathology responses. The gait is steady. Romberg stance is positive. The patient uses a walker for ambulation. IMPRESSION: 1. Numbness and paresthesia of the feet, likely due to underlying diabetic neuropathy. 2. Multiple medical problems include diabetes mellitus, hypertension and hyperlipidemia. 3. Positive COVID test on day of admission. RECOMMENDATIONS: 1. Continue with current management initiated by Dr. Harrison. 2. Physical therapy as tolerated. 3. We will arrange for EMG/NCS of the lower extremities to rule out peripheral neuropathy versus lumbosacral radiculopathy. The patient is neurologically stable. NAOMI/SILVESTRE CAAL: Tab TID: [id number]
[2021-11-18 22:45] VITALS: BP 18/69
[2021-11-19] MEDS: guaiFENesin/CODEINE 100mg/10mg 5 ML LIQUID PO PRN ×5 (04:15→22:09)
[2021-11-19 05:00] VITALS: BP 122/70
[2021-11-19] MEDS: SOTALOL 80 MG TABLET. PO SCH ×2 (08:36→20:20)
[2021-11-19] MEDS: ASPIRIN ENTERIC COATED 81 MG TABLET.DR. PO SCH (08:36)
[2021-11-19] MEDS: PIOGLITAZONE 15 MG TABLET. PO SCH (08:36)
[2021-11-19] MEDS: GLIMEPIRIDE 2 MG TABLET PO SCH (08:36)
[2021-11-19] MEDS: metFORMIN 500 MG TABLET PO SCH ×2 (08:36→17:00)
[2021-11-19] MEDS: DABIGATRAN ETEXILATE 150 MG CAPSULE. PO SCH ×2 (08:36→20:20)
[2021-11-19] MEDS: GABAPENTIN 100 MG CAPSULE. PO SCH ×3 (08:37→20:20)
--- NOTE | 2021-11-19 10:01 | PN ---
DATE: 11/19/2021 ATTENDING PHYSICIAN: Dr. Harrison. SUBJECTIVE: He is doing better. He is up and ambulating independently with a walker without any assistance. Strength in his legs has improved. OBJECTIVE FINDINGS: VITAL SIGNS: Blood pressure this morning is 122/70 mmHg, he is afebrile, pulse 57 and regular and his oxygen saturations are 96% on room air. HEENT: Head is without trauma. Pupils are reactive. Sclerae are nonicteric. Oropharynx clear. NECK: Supple. No bruits. LUNGS: Clear. CARDIOVASCULAR: Regular heart tones. ABDOMEN: Soft. EXTREMITIES: Show no cyanosis. LABORATORY DATA: His nonfasting blood sugar this morning was 105 mg/dL. ASSESSMENT: 1. A 80-year-old gentleman with diabetic neuropathy and profound weakness, improving. 2. Cardiac arrhythmias. 3. Hypotension due to diuretics and his cardiac meds. 4. Known coronary artery disease. 5. Type 2 diabetes. 6. Essential hypertension. 7. Asymptomatic COVID infection with Omicron variant, he is asymptomatic. PLAN: 1. I have reviewed his meds. He is better since his Betapace was decreased. 2. Continue physical therapy. 3. Diuretics held. 4. Tentative discharge plan home tomorrow with some home health care. He will consider going to rehab in a week following quarantine. [facility] has accepted him, but they want him quarantine because of his COVID status. RONALD/RENETTA DR: RONALD/rihcard TID: [id number] CC: Brennan Carrillo
[2021-11-19 12:14] VITALS: BP 117/67
[2021-11-19 15:00] VITALS: BP 132/70
[2021-11-19 19:30] VITALS: BP 119/61
[2021-11-19] MEDS: ATORVASTATIN CALCIUM 20 MG TABLET PO SCH (20:21)
[2021-11-20] MEDS: guaiFENesin/CODEINE 100mg/10mg 5 ML LIQUID PO PRN ×2 (05:42→09:05)
[2021-11-20 07:00] VITALS: BP 117/66
[2021-11-20 09:04] VITALS: BP 119/61
[2021-11-20] MEDS: PIOGLITAZONE 15 MG TABLET. PO SCH (09:04)
[2021-11-20] MEDS: SOTALOL 80 MG TABLET. PO SCH (09:04)
[2021-11-20] MEDS: GLIMEPIRIDE 2 MG TABLET PO SCH (09:05)
[2021-11-20] MEDS: metFORMIN 500 MG TABLET PO SCH (09:05)
[2021-11-20] MEDS: DABIGATRAN ETEXILATE 150 MG CAPSULE. PO SCH (09:05)
[2021-11-20] MEDS: GABAPENTIN 100 MG CAPSULE. PO SCH (09:05)
[2021-11-20] MEDS: ASPIRIN ENTERIC COATED 81 MG TABLET.DR. PO SCH (09:05)
--- NOTE | 2021-11-20 09:17 | DS ---
DATE OF DISCHARGE: 11/20/2021 ATTENDING PHYSICIAN: Dr. Harrison. FINAL DISCHARGE DIAGNOSES: 1. A 80-year-old gentleman with diabetic neuropathy with associated peripheral lower extremity weakness. 2. Cardiac arrhythmia, stable. 3. Essential hypertension. He was a bit hypotensive due to diuretics. 4. Known coronary artery disease. 5. Type 2 diabetes with stable blood sugars. 6. Essential hypertension. 7. Asymptomatic and incidental COVID infection with the Omicron variant. He was totally asymptomatic. HISTORY AND PHYSICAL: The patient, age 80, has diabetes, high blood pressure, cardiac arrhythmia. He was weak, getting frequent falls. He was admitted for further treatment and evaluation. We did believe that he has a peripheral neuropathy. PHYSICAL EXAMINATION: Please see the dictated note. PERTINENT LABORATORY AND X-RAY STUDIES: Prior to discharge, his hemoglobin was 13.6 g/dL with a white count of 8100. Electrolytes within normal range. Creatinine is 1.2 mg/dL. Nonfasting blood sugar in the low 100s. Transaminases were normal. Cardiac enzymes negative for coronary ischemia. The patient was admitted. I took the liberty of stopping his chlorthalidone with much improvement. In addition, I decreased his Betapace dose from 120 mg b.i.d. down to 80 mg b.i.d. His heart rate was monitored and quite normal. Neurology consultation was entertained. Dr. Shook's recommendation on the chart. He recommended outpatient followup and electromyogram at that time. This can be set up as an outpatient. We asked Physical Therapy to see him and they made good progress. He was able to ambulate independently with the aid of a walker. He already has a walker and a handicap sticker at home. He was agreeable to go to a subacute rehab at a local facility. Because of his asymptomatic COVID status, they recommended quarantine. Therefore, he will be scheduled to go after 11/25/2021. He is discharged home today with new scripts for Betapace 80 mg now b.i.d., stopping the chlorthalidone altogether. He should continue his Pradaxa 150 mg b.i.d., aspirin one daily, Lipitor 40 mg daily, Neurontin 100 mg p.o. t.i.d., glimepiride 4 mg daily, lisinopril 40 mg daily, metformin 1000 mg b.i.d., Actos 30 mg daily. Once again, we stopped his chlorthalidone and we decreased his Betapace dose down from 120 b.i.d. to 80 b.i.d. The patient was then discharged from our hospital in stable condition with explicit instructions and followup care. Eventually, if he is still needing rehabilitation, he should be able to go after 11/25. Total discharge time spent [address]: Nel TID: [id number] CC: Brennan Carrillo
--- NOTE | 2021-11-21 02:04 | PN ---
DATE: 11/20/2021 SUBJECTIVE: The patient denies any new medical or neurological complaints. He continues to have intermittent numbness and paresthesia of the feet. OBJECTIVE: GENERAL: A well-developed, well-nourished male in no acute distress. VITAL SIGNS: Blood pressure is 170/66, respiratory rate 20, pulse is 60, temperature 98.1, oxygen saturation 95% on room air. HEENT: Normocephalic, atraumatic, otherwise unremarkable. NECK: Supple, negative for carotid bruit, lymphadenopathy or thyromegaly. LUNGS: Clear to A and P. CARDIOVASCULAR: Regular rate and rhythm, normal S1, S2. There is no S3, S4 or murmur. ABDOMEN: Soft. Bowel sounds positive. EXTREMITIES: Negative for cyanosis, clubbing or pedal edema. NEUROLOGIC: Mental status: The patient is alert and oriented x 3. Speech is fluent. There is no language dysfunction. Memory, judgment and abstracting thinking are normal. The patient denies hallucination or delusion. Cranial nerves are intact. No focal motor or sensory deficit. Motor examination revealed no focal muscle bulk wasting. The tone is normal. The strength 5/5 throughout. Sensory examination revealed a normal pinprick, light touch, vibratory and position senses. Deep tendon reflexes were symmetric and active without pathology responses. Gait and coordination were normal, but the Romberg sign is positive. IMPRESSION: 1. Intermittent numbness and paresthesia of the feet, probably due to diabetic peripheral neuropathy. 2. Multiple medical problems include diabetes mellitus, hypertension, hyperlipidemia. 3. Positive COVID test on day of admission without significant symptoms except for sore throat and generalized weakness. RECOMMENDATIONS: 1. We will continue with current management initiated by Dr. Harrison. 2. We will arrange for EMG/NCS of the lower extremities to rule out peripheral neuropathy versus entrapment neuropathy in the lower extremities and possible diabetic neuropathy. The patient is neurologically stable. Continue with current home medications including gabapentin 100 mg t.i.d. 3. We will follow the patient up as outpatient and probably adjust his gabapentin dose to 300 mg t.i.d. gradually. NAOMI/EMMANUEL DR: NAOMI/richard TID: [id number]
== END 2021-11-20 09:35 | disposition home or self-care (01) | DRG 73 ==
LOC: ER 17:56 → 1 SOUTH 11-16 00:28
PROVIDERS: ADMIT Hospitalist; ATTEND Hospitalist
DX: E11.42 Type 2 diabetes mellitus with diabetic polyneuropathy (principal); U07.1 COVID-19; I95.2 Hypotension due to drugs; E78.00 Pure hypercholesterolemia, unspecified; I10 Essential (primary) hypertension; F17.210 Nicotine dependence, cigarettes, uncomplicated; E78.5 Hyperlipidemia, unspecified; T50.2X5A Adverse effect of carbonic-anhydrase inhibitors, benzothiadiazides and other diuretics, initial encounter; I25.10 Atherosclerotic heart disease of native coronary artery without angina pectoris; I49.9 Cardiac arrhythmia, unspecified; R26.81 Unsteadiness on feet; I45.10 Unspecified right bundle-branch block; K21.9 Gastro-esophageal reflux disease without esophagitis; K57.30 Diverticulosis of large intestine without perforation or abscess without bleeding; R29.6 Repeated falls; Z85.46 Personal history of malignant neoplasm of prostate; Z82.49 Family history of ischemic heart disease and other diseases of the circulatory system; Z82.0 Family history of epilepsy and other diseases of the nervous system; Z83.49 Family history of other endocrine, nutritional and metabolic diseases; Z79.01 Long term (current) use of anticoagulants; Y92.89 Other specified places as the place of occurrence of the external cause; Z90.49 Acquired absence of other specified parts of digestive tract
CPT/HCPCS: 36415; 70450; 70496; 70498; 71045; 74176; 80053; 81001; 82947; 84484; 85025; 85379; 85610; 85730; 87086; 87426; 93005; 99406; Q9967; 97110; 97116; 97530; 97535; 99285-25

== ENCOUNTER 2021-11-22 18:21 | Emergency (ER) | payer MEDICARE, OTHER ==
[~2021-11-22] VITALS: Ht 188 cm; Wt 109.0 kg
[~2021-11-22 18:21] MED LIST: ASPI-889 PO; ATOR40TA59 PO; CHLO25TA9 PO; DABI150C PO; GABA-585 PO; GLIM4TAB8 PO; GUAI600T47 PO; LISI40TA6 PO; METF10007 PO; PIOG30TA41 PO; SOTA80TA48 PO
[2021-11-22] MEDS ORDERED: IPRATRPIUM/ALBUTEROL 0.5/2.5MG 3 ML NEBU. NEB ONE (18:45)
--- NOTE | 2021-11-22 18:52 | PHYS DOC ---
Past History Past Medical History: Arrhythmia, Diabetes, High Cholesterol, Hypertension Additional Past Medical Histor: RBBB (KEITH RUTHERFORD) Past Surgical History: Cholecystectomy, Other Additional Past Surgical Histo: prostatectomy for cancer of prostate; wisdom teeth (KEITH RUTHERFORD) Smoking: Quit Less Than 1 Year Additional Smoking Information: off and on smoker throughout adulthood Alcohol Use: None (KEITH RUTHERFORD) General Adult EDM: Chief Complaint: SHORTNESS OF BREATH HPI: HPI: Patient is a 80 year old male who presents with shortness of breath and cough. 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 He had an incidental positive COVID-19 test on admission. Patient has an intermittent smoking history x >50 years. Since his discharge from the hospital, he states that the only change in his symptomology is presence of shortness of breath. Patient states he was completely asymptomatic during his admission. Lisinopril is among his daily medications. He has no other complaints. (KEITH RUTHERFORD) Review of Systems: Review of Systems: ROS negative or noncontributory except as mentioned in HPI. (KEITH RUTHERFORD) Current Medications: Current Meds: Current Medications Medications (Trade) Dose Ordered Sig/Lauren Start Time Stop Time Status Last Admin Dose Admin Albuterol/ Ipratropium (Duoneb) 3 ml 1X ONCE 11/22/21 18:45 11/22/21 18:48 DC (KEITH RUTHERFORD) Allergies: Allergies: Allergies Coded Allergies Type Severity Reaction Last Updated Verified No Known Drug Allergies 07/29/20 No (KEITH RUTHERFORD) Physical Exam: PE: Constitutional: Well developed, well nourished, no acute distress, non-toxic appearance. HENT: Normocephalic, atraumatic, bilateral external ears normal, nose normal. Eyes: EOMI, conjunctiva normal, no discharge. Neck: Normal range of motion, no stridor. Skin: Warm, dry, no erythema, no rash, no cyanosis. Extremities: No tenderness, no cyanosis, no clubbing, ROM intact, no edema. Neurologic: Alert and oriented x4, no focal deficits noted. (KEITH RUTHERFORD) Current Patient Data: Labs: Laboratory Tests Test 1/26/22 19:15 Troponin I High Sensitivity 16 ng/L (4-75) Vital Signs: Vital Signs Date Time Temp Pulse Resp B/P (MAP) Pulse Ox O2 Delivery O2 Flow Rate FiO2 11/22/21 20:10 75 24 159/73 (101) 94 Room Air 11/22/21 18:32 98.6 80 26 156/81 (106) 98 Nasal Cannula 2.0 (KEITH RUTHERFORD) EKG: EKG: EKG Interpreted by Dr. Byrd at 1859: Irregularly irregular rhythm 83 bpm with occasional PVC. RBBB unchanged from prior EKG. QT 436 ms/QTc 513 ms. No STEMI. (KEITH RUTHERFORD) Radiology/Procedures: Radiology/Procedures: Preliminary read: Bilateral airspace opacity, could be pneumonia or edema. Radiologist John Banks MD. (KEITH RUTHERFORD) Heart Score: C/O Chest Pain: No (KEITH RUTHERFORD) Course & Med Decision Making: Course & Med Decision Making Pertinent Labs and Imaging studies reviewed. (See chart for details) Patient is a 80-year-old male who is known Covid positive who presents today with shortness of breath. In reviewing his documentation from his recent hospital stay, he was instructed to quarantine at home until he goes to short- term rehab regarding his peripheral neuropathy diagnosis. Patient presents today as he is concerned for cough and shortness of breath. Lisinopril is among his daily medications, which could contribute to his cough. Patient does have long history of smoking tobacco, however has intermittently quit and resumed smoking over the years. Given smoking history and recent bouts of shortness of breath, COPD is a likely possibility. Work-up today will include chest x-ray, EKG and a breathing treatment. Spoke to patient's daughter on the phone and informed her of findings and treatment plan. She states that while the patient has inpatient rehab scheduled to begin in a few days, patient does not plan on participating. I advised her that she should encourage her father to attend, as he will gain the most benefit from this sort of rehabilitation program. Additionally, if the inpatient physician determined inpatient rehab is appropriate, it will provide much improvement. Patient is much improved after treatment provided. Return precautions given, referral for pulmonology provided. Patient understands and is agreeable to discharge plan. (KEITH RUTHERFORD) Course & Med Decision Making Did not see or evaluate patient. Agree with PAs work-up and disposition per note. (TOLU BYRD MD) Elizabeth Disclaimer: Elizabeth Disclaimer: This electronic medical record was generated, in whole or in part, using a voice recognition dictation system. (KEITH RUTHERFORD) Departure Departure: Impression: Primary Impression: COVID-19 virus infection Additional Impressions: Atypical pneumonia Suspected chronic obstructive pulmonary disease based on initial evaluation Hx of tobacco use, presenting hazards to health Disposition: 01 HOME / SELF CARE / HOMELESS Condition: STABLE Referrals: DAE BRYAN MD (PCP) Patient Instructions: Chronic Obstructive Pulmonary Disease, [id number] Additional Instructions: Follow the following supportive treatment measures: - Cool mist humidifier with plain water at bedside while you sleep - Mucinex (guaifenesin) per box instructions - Alternate ibuprofen and acetaminophen every four hours for body aches/fever/headache - Use the incentive spirometer 5 times per day with 10 deep breaths each time If antibiotics were prescribed, take them as directed. You have been tested for or diagnosed with COVID-19 infection. It is an infection caused by a new type of coronavirus. COVID-19 will cause cold-like or mild flu symptoms in most. It can cause more severe symptoms like problems breathing in some. There is no treatment for COVID-19. The body will clear the infection over time. Self-care will help to ease discomfort. Steps to Take: - Rest as needed. - Choose healthy foods including fruits and vegetables. Drink water throughout the day. - Get plenty of sleep each night. - If you smoke, try to quit. It may ease breathing. - Avoid alcohol. - Keep Others Healthy - The virus can spread to others. Droplets are released every time you sneeze or cough. The droplets can get into the mouth, nose, or eyes of people near you and lead to infection. To lower the chances of spreading COVID-19 to others: Stay at home until your doctor has said it is safe to leave. If you tested positive this will mean staying isolated until both of the following are true: - At least 10 days have passed since the start of illness. - You are free of fever for at least 72 hours without the use of medicine. During this time: - Avoid public areas, events, or transportation. Do not return to work or school until your doctor has said it is safe to do so. - Call ahead if you need to go to a medical center. Let them know you may have COVID-19. It will help them guide you where to go. They may also ask you to wear a facemask when you come to the office. - If you call for emergency medical services, let them know you may have COVID- 19. While at home: - Try to avoid close contact with others. Stay about 6 feet away. - If possible, spend most of your time in a separate room from others. - Use a face mask if you will be in close contact with others such as sharing a room or vehicle. - Have someone wipe down common surfaces in the home. Use household special agent every day on areas like doorknobs, counters, or sinks. - Cough or sneeze into a tissue. Throw the tissue away right after use. If a tissue is not available, cough or sneeze into your elbow. - Wash your hands often. Wash them after sneezing or coughing. Use soap and water and wash or at least 20 seconds. Alcohol based hand shoe cleaner can be used if soap and water is not available. - Do not prepare food for others. Avoid sharing personal items like forks, spoons, or toothbrushes. - Avoid close contact with pets while you are sick. There is no evidence of the virus passing to pets. This is a safety step until more is known about this virus. - Isolation can be frustrating. Social interaction can help. Keep in touch with friends and family through phone and tech options. You can still interact with others in your home, just keep a safe distance of about 6 feet. Follow-up: - Your doctors office will check in with you to see if there are any changes in your health. - You may be asked to keep track of symptoms to share with them. They will also let you know when you are clear to be in public again. Contact your doctor if your recovery is not going as you expect. Get emergency care if you have problems such as: - Trouble breathing with oxygen saturation <90% - Nonstop chest pain or pressure - Changes in awareness, confusion, or problems waking - Lips or face have bluish color - Worsening of symptoms If you think you have an emergency, call for emergency medical services right away. As taken from [facility] Levofloxacin (LEVOFLOXACIN) 750 Mg Tablet 1 TAB PO DAILY for pna, #6 TAB Prov: KEITH RUTHERFORD 11/22/21 KEITH RUTHERFORD Nov 22, 2021 18:52 TOLU BYRD MD Nov 22, 2021 22:10
[2021-11-22] MEDS ORDERED: levoFLOXacin 250 MG TABLET PO ONE (19:15)
[2021-11-22] MEDS ORDERED: LEVO750T5 PO ×2 (19:20→20:04)
[2021-11-22 20:10] VITALS: BP 159/73
--- NOTE | 2021-11-22 21:33 | RAD ---
XR CHEST 1V History: Shortness of breath Comparison: 11/15/2021 Technique: Portable AP radiograph of the chest. Findings: The lungs are adequately inflated. There are hazy bilateral airspace opacities, increased from compar angelina. No pleural effusion or pneumothorax. The cardiomediastinal silhouette is enlarged. Pulmonary va sculature is minimally prominent. Osseous structures and soft tissues are unremarkable. Impression: 1. Increasing hazy bilateral airspace opacities may represent multifocal infection or edema. Electronically signed by: Arturo Banks MD (11/22/2021 9:30 PM) [facility]
--- NOTE | 2021-11-23 19:15 | EKG ---
[address] [address] Test Date: 2021-11-22 Test Time: 18:57:47 Pat Name: JOHN ALARCON Department: Room: Gender: M Reporting Manager: LAWRENCE : 1940 Requested By: KEITH RUTHERFORD Order Number: [id number] Reading MD: Louis Cr Measurements Intervals [place] Rate: 83 P: AK: QRS: 50 QRSD: 132 T: 34 QT: 436 QTc: 513 Interpretive Statements SINUS RHYTHM LOW LIMB LEAD VOLTAGE RIGHT BUNDLE BRANCH BLOCK Electronically Signed On 11-24-2021 13:10:11 MACHINE OPERATOR PACKAGING by Louis Cr
== END 2021-11-22 20:15 | disposition home or self-care (01) ==
LOC: ER 18:21
DX: U07.1 COVID-19 (principal); J18.9 Pneumonia, unspecified organism; E11.9 Type 2 diabetes mellitus without complications; E78.00 Pure hypercholesterolemia, unspecified; I10 Essential (primary) hypertension; Z87.891 Personal history of nicotine dependence
CPT/HCPCS: 36415; 71045; 84484; 93005; 94640; 99285

== ENCOUNTER 2021-12-26 14:11 | Observation (INO) | payer MEDICARE, OTHER ==
[~2021-12-26] VITALS: Ht 188 cm; Wt 115.5 kg
[~2021-12-26 14:11] MED LIST changes: +LEVO750T5 PO
[2021-12-26] MEDS ORDERED: ACETAMINOPHEN 500 MG TABLET PO ONE ×2 (14:16→14:30)
[2021-12-26] MEDS ORDERED: IOHEXOL 350 MG/ML 100 ML VIAL. IV ONE (14:30)
[2021-12-26] MEDS ORDERED: methylPREDNISolone SOD SUCC PF 125 MG/2 ML VIAL. IV ONE (14:30)
--- NOTE | 2021-12-26 14:40 | PHYS DOC ---
Past History Past Medical History: Arrhythmia, Diabetes, High Cholesterol, Hypertension Additional Past Medical Histor: RBBB Past Surgical History: Cholecystectomy, Other Additional Past Surgical Histo: prostatectomy for cancer of prostate; wisdom teeth Smoking: Quit Less Than 1 Year Alcohol Use: None General Adult EDM: Chief Complaint: SHORTNESS OF BREATH HPI: HPI: Patient is a 80-year-old male who presents to the emergency department via EMS for complaints of shortness of breath that started yesterday. It appears the patient was seen in this emergency department on November 22 and diagnosed with Covid pneumonia, he was discharged home with a prescription for Levaquin. Patient has a history of COPD, diabetes, high cholesterol, hypertension, right bundle senait block and prostate cancer. Patient does not wear home oxygen. Patient's room air oxygen saturation when he arrived was 88%, patient was placed on 2 L via nasal cannula and his oxygen saturation is 96%. Patient is also noted to be tachycardic, he has a fever of 102 degrees. Patient's primary care provider is Dr. Bryan. Patient denies nausea, vomiting, abdominal pain, chest pain, increased edema in his lower extremities. Review of Systems: Review of Systems: Constitutional: See HPI Respiratory: See HPI Cardiovascular: See HPI GI: See HPI Current Medications: Current Meds: Current Medications Medications (Trade) Dose Ordered Sig/Lauren Start Time Stop Time Status Last Admin Dose Admin Acetaminophen (Tylenol) 1,000 mg 1X ONCE 12/26/21 14:30 12/26/21 14:31 DC Iohexol (Omnipaque 350 Mg/ml) 100 ml 1X ONCE 12/26/21 14:30 12/26/21 14:31 UNV Methylprednisolone Sodium Succinate (SOLU-Medrol 125MG VIAL) 125 mg 1X ONCE 12/26/21 14:30 12/26/21 14:31 DC Allergies: Allergies: Allergies Coded Allergies Type Severity Reaction Last Updated Verified No Known Drug Allergies 07/29/20 No Physical Exam: PE: Constitutional: Well developed, well nourished, no acute distress, non-toxic appearance. [] HENT: Normocephalic, atraumatic, bilateral external ears normal, oropharynx moist, no oral exudates, nose normal. [] Eyes: PERRL, EOMI, conjunctiva normal, no discharge. [] Neck: Normal range of motion, no stridor Cardiovascular:Heart rate tachycardic rhythm Lungs & Thorax: Coarse lung sounds throughout, tachypneic Abdomen: Bowel sounds normal, soft, no tenderness, no masses, no pulsatile masses. [] Skin: Warm, dry, no erythema, no rash. [] Back: Normal range of motion Extremities: No tenderness, no cyanosis, no clubbing, ROM intact, 2+ pitting edema noted to bilateral lower extremities Neurologic: Alert and oriented X 3, normal motor function, normal sensory function, no focal deficits noted. [] Psychologic: Affect normal, judgement normal, mood normal. [] Current Patient Data: Labs: Laboratory Tests Test 12/26/21 14:40 White Blood Count 5.4 x10^3/uL Red Blood Count 4.80 x10^6/uL Hemoglobin 13.7 g/dL Hematocrit 41.8 % Mean Corpuscular Volume 87 fL Mean Corpuscular Hemoglobin 29 pg Mean Corpuscular Hemoglobin Concent 33 g/dL Red Cell Distribution Width 17.8 % Platelet Count 213 x10^3/uL Neutrophils (%) (Auto) 88 % Lymphocytes (%) (Auto) 6 % Monocytes (%) (Auto) 6 % Eosinophils (%) (Auto) 0 % Basophils (%) (Auto) 0 % Neutrophils # (Auto) 4.8 x10^3uL Lymphocytes # (Auto) 0.3 x10^3/uL Monocytes # (Auto) 0.3 x10^3/uL Eosinophils # (Auto) 0.0 x10^3/uL Basophils # (Auto) 0.0 x10^3/uL Sodium Level 144 mmol/L Potassium Level 3.6 mmol/L Chloride Level 104 mmol/L Carbon Dioxide Level 28 mmol/L Anion Gap 12 Blood Urea Nitrogen 6 mg/dL Creatinine 1.1 mg/dL Estimated GFR (Cockcroft-Gault) 64.7 BUN/Creatinine Ratio 5 Glucose Level 109 mg/dL Lactic Acid Level 2.0 mmol/L Calcium Level 8.7 mg/dL Total Bilirubin 0.7 mg/dL Aspartate Amino Transf (AST/SGOT) 27 U/L Alanine Aminotransferase (ALT/SGPT) 20 U/L Alkaline Phosphatase 93 U/L Troponin I High Sensitivity 14 ng/L TP-Vwi-D-Type Natriuretic Peptide 1220 pg/mL Total Protein 6.8 g/dL Albumin 3.6 g/dL Albumin/Globulin Ratio 1.1 Current Medications Medications (Trade) Dose Ordered Sig/Lauren Route PRN Reason Start Time Stop Time Status Last Admin Dose Admin Acetaminophen (Tylenol) 500 mg STK-MED ONCE PO 12/26/21 14:16 12/26/21 14:17 DC Methylprednisolone Sodium Succinate (SOLU-Medrol 125MG VIAL) 125 mg 1X ONCE IV 12/26/21 14:30 12/26/21 14:31 DC Acetaminophen (Tylenol) 1,000 mg 1X ONCE PO 12/26/21 14:30 12/26/21 14:31 DC 12/26/21 14:41 Iohexol (Omnipaque 350 Mg/ml) 100 ml 1X ONCE IV 12/26/21 14:30 12/26/21 14:46 DC Albuterol/ Ipratropium (Duoneb) 3 ml 1X ONCE NEB 12/26/21 15:45 12/26/21 15:50 DC 12/26/21 16:01 EKG: EKG: [] EKG performed by ER staff at 1445 shows sinus rhythm with a rate of 98, right bundle branch block, QTC is 456, no STEMI read by Dr. Adams at 1450. Radiology/Procedures: Radiology/Procedures: PROCEDURE: PORTABLE CHEST 1V Single view chest dated 12/26/2021 3:30 PM: COMPARISON: 11/15/2021 Clinical Indication: Shortness of breath. Findings: Single upright portable exam of the chest was performed. Heart and mediastinal contours are stable. Lungs are somewhat hyperinflated but otherwise clear. No consolidation or pleural effusion. No pneumothorax.. IMPRESSION: No acute radiographic abnormality. Stable findings compared to 11/15/2021. Electronically signed by: Terry Back MD (12/26/2021 3:31 PM) [facility] [place]ATED AND SIGNED BY: TERRY BACK MD DATE: 12/26/21 1530 CC: ARPIT MCELROY APRN; DAE BRYAN MD ~MTH0 0 PROCEDURE: CT ANGIOGRAPHY CHEST CTA chest with contrast dated 12/26/2021. COMPARISON: None. INDICATION: Hypoxia. Tachycardia and shortness of breath. TECHNIQUE: Contiguous axial imaging the chest was performed following the intravenous administration of 100 cc Isovue-370. Study was performed as dedicated PE protocol with thin cut coronal MIPS 3-D reconstruction. One or more of the following individualized dose reduction techniques were utilized for this examination: 1. Automated exposure control 2. Adjustment of the mA and/or kV according to patient size 3. Use of iterative reconstruction technique FINDINGS: Contrast bolus is adequate. No evidence of central, lobar or segmental pulmonary embolus. Subsegmental branches are not well evaluated based on technique. Heart size is mildly enlarged. No pericardial effusion. Coronary artery calcifications. ASD closure device in place. There is an enlarged subcarinal lymph node measuring 1.9 cm short axis. There are also mildly enlarged bilateral hilar lymph nodes. No axillary or supraclavicular lymphadenopathy. Thyroid g land unremarkable. Central airways are patent. Diffuse bronchial wall thickening. There is patchy increased density along the bronchovascular bundles of the bilateral lower lobes. No serum pleural effusion. No pneumothorax. There is mild paraseptal emphysema. Limited images of the upper abdomen are unremarkable. Gallbladder surgically absent. No acute bony abnormality. Multilevel spondylosis. IMPRESSION: 1. No evidence of central, lobar or segmental pulmonary embolus. 2. Diffuse bronchial wall thickening with some patchy airspace disease along the bronchovascular bundles of the bilateral lower lobes. Consider early bronchopneumonia or aspiration. 3. Mild mediastinal and bilateral hilar lymphadenopathy, nonspecific. 4. Coronary artery calcifications. Electronically signed by: Terry Back MD (12/26/2021 3:59 PM) [facility] [place]CTATED AND SIGNED BY: TERRY BACK MD DATE: 12/26/21 1555 CC: MANOHAR ADAMS DO; ARPIT MCERLOY MINIATURE SET DESIGNER; DAE BRYAN MD ~MTH0 0 Heart Score: C/O Chest Pain: No Risk Factors: Risk Factors: DM, Current or recent (<one month) smoker, HTN, HLP, family history of CAD, obesity. Risk Scores: Score 0 - 3: 2.5% MACE over next 6 weeks - Discharge Home Score 4 - 6: 20.3% MACE over next 6 weeks - Admit for Clinical Observation Score 7 - 10: 72.7% MACE over next 6 weeks - Early Invasive Strategies Course & Med Decision Making: Course & Med Decision Making Pertinent Labs and Imaging studies reviewed. (See chart for details) Patient presents to the emergency department for complaints of shortness of breath that started yesterday. Patient does have a history of COPD, diabetes, high cholesterol, hypertension, prostate cancer. He does not wear any home oxygen but requires 2 L via nasal cannula as he did have an O2 saturation on room air of 88%. It appears that patient was seen in this emergency department on November 22 and diagnosed with Covid pneumonia discharged home with Levaquin. Work-up in the ER consisted of blood work including troponin and BNP, EKG, chest x-ray to rule out pneumonia. Patient had a CT angios chest ordered as he does have tachycardia, hypoxia, fever and shortness of breath to rule out pulmonary embolism. Patient's Wells score was 4.5 indicating moderate risk for PE. Patient treated with steroids, breathing treatment for COPD exacerbation. CBC unremarkable, patient's BNP was 1220, troponin unremarkable, remainder of CMP was unremarkable. Chest x-ray is negative but does show hyperinflated lungs. CTA does not show any pulmonary embolism, there is lymphadenopathy and emphysema-like changes and bronchopneumonia. Patient will be treated with antibiotic. As patient is requiring oxygen, patient will need to be admitted to the hospital, he will be treated with IV antibiotics. I discussed these findings with patient and family member and they are agreeable to care plan. I discussed these findings with Dr. Grissom who agreed to admit the patient under his services. ER bridge orders placed at 1614. Elizabeth Disclaimer: Elizabeth Disclaimer: This electronic medical record was generated, in whole or in part, using a voice recognition dictation system. Departure Departure: Impression: Primary Impression: COPD (chronic obstructive pulmonary disease) Qualified Codes: J44.9 - Chronic obstructive pulmonary disease, unspecified Additional Impression: Pneumonia Qualified Codes: J18.9 - Pneumonia, unspecified organism Disposition: ADMITTED INPATIENT Admitting Physician: Leonora Grissom Condition: STABLE Referrals: DAE BRYAN MD (PCP) ARPIT MCELROY MINIATURE SET DESIGNER Dec 26, 2021 14:39
[2021-12-26 15:09] LABS: BASO % 0 % (0-3); EOS % 0 % (0-3); HEMATOCRIT 41.8 % (39.0-53.0); HEMOGLOBIN 13.7 g/dL (13.0-17.5); LYMPH # 0.3 x10^3/uL (1.0-4.8); LYMPH % 6 % (24-48); MEAN CORPUSCULAR HEMOGLOBIN 29 pg (25-35); MEAN CORPUSCULAR HGB CONC 33 g/dL (31-37); MEAN CORPUSCULAR VOLUME 87 fL (79-100); MONO # 0.3 x10^3/uL (0.0-1.1); MONO % 6 % (0-9); NEUT # 4.8 x10^3uL (1.8-7.7); NEUT % 88 % (31-73); PLATELET COUNT 213 x10^3/uL (140-400); RED CELL DISTRIBUTION WIDTH 17.8 % (11.5-14.5); WHITE BLOOD COUNT 5.4 x10^3/uL (4.0-11.0)
[2021-12-26 15:12] LABS: CALCIUM 8.7 mg/dL (8.5-10.1); CREATININE 1.1 mg/dL (0.7-1.3); GFR 64.7; POTASSIUM 3.6 mmol/L (3.5-5.1)
--- NOTE | 2021-12-26 15:19 | EKG ---
[address] [address] Test Date: 2021-12-26 Test Time: 14:45:57 Pat Name: JOHN ALARCON Department: Room: Gender: M Media Reconciliation Specialist: ARIC : 1940 Requested By: ARPIT MCELROY Order Number: [id number] Reading MD: Osvaldo Rodriguez MD Measurements Intervals Prim Rate: 98 P: DE: QRS: 95 QRSD: 132 T: -6 QT: 356 QTc: 456 Interpretive Statements SINUS RHYTHM RIGHTWARD AXIS RIGHT BUNDLE BRANCH BLOCK RVH WITH REPOLARIZATION ABNORMALITY ABNORMAL ECG Electronically Signed On 01-01-2022 11:50:45 INFORMATION TECHNOLOGY ASSOCIATE by Osvaldo Rodriguez MD
[2021-12-26 15:26] LABS: ALBUMIN 3.6 g/dL (3.4-5.0); ALBUMIN/GLOBULIN RATIO 1.1 (1.0-1.7); TOTAL BILIRUBIN 0.7 mg/dL (0.2-1.0); TOTAL PROTEIN 6.8 g/dL (6.4-8.2)
--- NOTE | 2021-12-26 15:34 | RAD ---
Single view chest dated 12/26/2021 3:30 PM: COMPARISON: 11/15/2021 Clinical Indication: Shortness of breath. Findings: Single upright portable exam of the chest was performed. Heart and mediastinal contours are stable. L ungs are somewhat hyperinflated but otherwise clear. No consolidation or pleural effusion. No pneumot horax.. IMPRESSION: No acute radiographic abnormality. Stable findings compared to 11/15/2021. Electronically signed by: Terry Back MD (12/26/2021 3:31 PM) [facility]
[2021-12-26] MEDS ORDERED: IPRATRPIUM/ALBUTEROL 0.5/2.5MG 3 ML NEBU. NEB ONE (15:45)
--- NOTE | 2021-12-26 16:01 | RAD ---
CTA chest with contrast dated 12/26/2021. COMPARISON: None. INDICATION: Hypoxia. Tachycardia and shortness of breath. TECHNIQUE: Contiguous axial imaging the chest was performed following the intravenous administration of 100 cc I sovue-370. Study was performed as dedicated PE protocol with thin cut coronal MIPS 3-D reconstruction . One or more of the following individualized dose reduction techniques were utilized for this examinat ion: 1. Automated exposure control 2. Adjustment of the mA and/or kV according to patient size 3. Use of iterative reconstruction technique FINDINGS: Contrast bolus is adequate. No evidence of central, lobar or segmental pulmonary embolus. Subsegmenta l branches are not well evaluated based on technique. Heart size is mildly enlarged. No pericardial effusion. Coronary artery calcifications. ASD closure d evice in place. There is an enlarged subcarinal lymph node measuring 1.9 cm short axis. There are als o mildly enlarged bilateral hilar lymph nodes. No axillary or supraclavicular lymphadenopathy. Thyroi d gland unremarkable. Central airways are patent. Diffuse bronchial wall thickening. There is patchy increased density marshal g the bronchovascular bundles of the bilateral lower lobes. No serum pleural effusion. No pneumothora x. There is mild paraseptal emphysema. Limited images of the upper abdomen are unremarkable. Gallbladder surgically absent. No acute bony ab normality. Multilevel spondylosis. IMPRESSION: 1. No evidence of central, lobar or segmental pulmonary embolus. 2. Diffuse bronchial wall thickening with some patchy airspace disease along the bronchovascular bund les of the bilateral lower lobes. Consider early bronchopneumonia or aspiration. 3. Mild mediastinal and bilateral hilar lymphadenopathy, nonspecific. 4. Coronary artery calcifications. Electronically signed by: Terry Back MD (12/26/2021 3:59 PM) [facility]
[2021-12-26] MEDS ORDERED: AZITHROMYCIN 500 MG in IV NORMAL SALINE 250ML 250 ML IV ONE (16:15)
[2021-12-26] MEDS ORDERED: IV NORMAL SALINE 250ML 250 ML ONE (16:57)
[2021-12-26] MEDS ORDERED: IV NORMAL SALINE 50ML 50 ML ONE (16:57)
[2021-12-26] MEDS ORDERED: cefTRIAXone SODIUM 1 GM VIAL ONE (16:57)
[2021-12-26] MEDS ORDERED: AZITHROMYCIN 500 MG VIAL. IV ONE (16:57)
[2021-12-26] MEDS ORDERED: BENZONATATE 100 MG CAPSULE. PO ONE (17:00)
[2021-12-26 17:59] VITALS: BP 113/64
[2021-12-26] MEDS ORDERED: SOTA80TA48 PO (18:26)
[2021-12-26 20:08] VITALS: BP 95/55
[2021-12-26] MEDS: GABAPENTIN 100 MG CAPSULE. PO SCH (20:22)
[2021-12-26] MEDS: DABIGATRAN ETEXILATE 150 MG CAPSULE. PO SCH (20:23)
[2021-12-26] MEDS ORDERED: ATORVASTATIN CALCIUM 20 MG TABLET PO SCH (21:00)
[2021-12-26 23:35] VITALS: BP 98/54
[2021-12-27] MEDS ORDERED: BENZONATATE 100 MG CAPSULE. PO PRN (01:45)
[2021-12-27 06:21] VITALS: BP 130/64
[2021-12-27 06:37] LABS: BASO % 0 % (0-3); EOS % 0 % (0-3); HEMATOCRIT 37.9 % (39.0-53.0); HEMOGLOBIN 12.1 g/dL (13.0-17.5); LYMPH # 0.5 x10^3/uL (1.0-4.8); LYMPH % 11 % (24-48); MEAN CORPUSCULAR HEMOGLOBIN 29 pg (25-35); MEAN CORPUSCULAR HGB CONC 32 g/dL (31-37); MEAN CORPUSCULAR VOLUME 91 fL (79-100); MONO # 0.3 x10^3/uL (0.0-1.1); MONO % 6 % (0-9); NEUT # 4.1 x10^3uL (1.8-7.7); NEUT % 83 % (31-73); PLATELET COUNT 180 x10^3/uL (140-400); RED BLOOD COUNT 4.16 x10^6/uL (4.30-5.70); RED CELL DISTRIBUTION WIDTH 17.7 % (11.5-14.5); WHITE BLOOD COUNT 4.9 x10^3/uL (4.0-11.0)
[2021-12-27 06:46] LABS: ALBUMIN 2.9 g/dL (3.4-5.0); ALBUMIN/GLOBULIN RATIO 0.9 (1.0-1.7); CALCIUM 8.2 mg/dL (8.5-10.1); CREATININE 1.2 mg/dL (0.7-1.3); GFR 58.6; POTASSIUM 3.6 mmol/L (3.5-5.1); TOTAL BILIRUBIN 0.3 mg/dL (0.2-1.0); TOTAL PROTEIN 6.1 g/dL (6.4-8.2)
[2021-12-27] MEDS ORDERED: metFORMIN 500 MG TABLET PO SCH (08:00)
[2021-12-27] MEDS: DABIGATRAN ETEXILATE 150 MG CAPSULE. PO SCH (08:08)
[2021-12-27 08:09] VITALS: BP 130/64
[2021-12-27] MEDS: GABAPENTIN 100 MG CAPSULE. PO SCH (08:09)
[2021-12-27] MEDS ORDERED: GLIMEPIRIDE 2 MG TABLET PO SCH (09:00)
[2021-12-27] MEDS ORDERED: LISINOPRIL 20 MG TABLET PO SCH (09:00)
[2021-12-27] MEDS ORDERED: SOTALOL 80 MG TABLET. PO SCH (09:00)
[2021-12-27] MEDS ORDERED: ASPIRIN ENTERIC COATED 81 MG TABLET.DR. PO SCH (09:00)
[2021-12-27] MEDS ORDERED: PIOGLITAZONE 15 MG TABLET. PO SCH (09:00)
--- NOTE | 2021-12-27 09:24 | HP ---
DATE OF SERVICE: 12/27/2021 ADMIT DATE: 12/26/2021 ATTENDING PHYSICIAN: Dr. Harrison. CHIEF COMPLAINT: Weakness and cough. HISTORY OF PRESENT ILLNESS: The patient age 80 is well known to us from a previous admission just a month ago. At that time, he had some syncopal episodes and falling. We adjusted his medications and sent him home. In the ED last night, he complained of generalized weakness. He called his doctor. He called his daughter, could not get up. He had an extensive workup and they found an early pneumonia and he has had a nonproductive cough. He has underlying COPD. He had a low-grade fever. He was admitted and started on antibiotics. He was feeling better this morning when I saw him. PAST MEDICAL HISTORY: Significant for paroxysmal atrial fibrillation, type 2 diabetes, hyperlipidemia, and essential hypertension, previous cholecystectomy, prostatectomy for prostate cancer. He was a heavy smoker up till a year ago. ALLERGIES: He has no known drug allergies. CURRENT MEDICATIONS: Include the following: He was on scheduled aspirin, Lipitor, dabigatran, Neurontin, glimepiride, guaifenesin, lisinopril, metformin, Actos and Betapace. Please note that he had been on 120 mg b.i.d. We had decreased the dose to 80 b.i.d. on his last admission. SOCIAL HISTORY: He was a heavy smoker. He drinks socially. FAMILY HISTORY: Noncontributory. REVIEW OF SYSTEMS: Significant for the recent hospitalization. He had been doing fairly well. We had offered the rehab, but he got better and had been functioning well at home. All other systems reviewed and turned to be negative. PHYSICAL EXAMINATION: GENERAL: When I saw him, this is a pleasant, middle-aged gentleman. VITAL SIGNS: Initial vital signs showed a blood pressure of 130/60, pulse is 70 and regular. He was afebrile, oxygen saturation 96% on room air. He was 93% on room air when I saw him. HEENT: Head is without trauma. Pupils are reactive. Sclerae nonicteric. The oropharynx is clear. NECK: Supple, no bruits. LUNGS: Minimal wheezing noted. CARDIOVASCULAR: Showed regular heart tones. No gallop. ABDOMEN: Soft. EXTREMITIES: Without edema. NEUROLOGIC: Focally intact. Speech is fluent. PERTINENT LABORATORY AND IMAGING STUDIES: Hemoglobin on admission was 13.7 g/dL, white count 5400. Electrolytes: BUN and creatinine all within normal range. Nonfasting blood sugar of 169. Transaminases are normal. CT of the chest showed no blood clots. There is early bronchopneumonia. No distinct infiltrates identified and some enlarged lymph nodes are identified, maybe reactive. ASSESSMENT: 1. A 80-year-old gentleman with exacerbation of chronic obstructive pulmonary disease and early bronchopneumonia. 2. Chronic obstructive pulmonary disease due to tobacco use. 3. Paroxysmal atrial fibrillation. 4. Recent hospitalization with hypotension and adjustment of medications. 5. History of prostate cancer. 6. Essential hypertension, currently normotensive. PLAN: 1. Admit to the inpatient unit. 2. Home medications continued. 3. Empiric antibiotics as ordered. TEVIN DR: Nel TID: [id number] CC: Brennan Carrillo MD
--- NOTE | 2021-12-27 09:32 | DS ---
DATE OF DISCHARGE: 12/27/2021 ATTENDING PHYSICIAN: Dr. Harrison. FINAL DISCHARGE DIAGNOSES: 1. Exacerbation of chronic obstructive pulmonary disease. 2. Continued tobacco use. 3. Paroxysmal atrial fibrillation. 4. Type 2 diabetes. 5. Hyperlipidemia. 6. Essential hypertension. HISTORY AND PHYSICAL: The patient, age 80, is well known to us from previous admission. He was doing well. He has some shortness of breath and weakness. He is still smoking. Workup in the ED showed possible early pneumonia on CT. He was started on antibiotics. PHYSICAL EXAMINATION: Please see the dictated note. PERTINENT LABORATORY AND X-RAY STUDIES: Admission hemoglobin was 13.7 grams, white count normal at 5400. Electrolytes, BUN, creatinine within normal range. Nonfasting blood sugar was 169. CT of the chest demonstrated some COPD changes. He also had early bronchopneumonia, with some inflammation around the bronchus and some reactive lymph nodes. COURSE IN THE HOSPITAL: The patient was admitted. He was started on empiric IV antibiotics. Home meds were continued. He did well. He did not require any supplemental oxygen. There were no obvious infiltrates on the scans on admission. He wanted to go home. I felt this was reasonable. Strong encouragement to avoid further cigarette use. He says he is going to quit. Whether or not he will quit smoking remains to be seen. In any event, I wrote a script for cephalexin 500 mg p.o. t.i.d. for 7 days. Other home meds are unchanged. They include the following: He should continue his scheduled Pradaxa, aspirin, Lipitor, Neurontin, glimepiride, lisinopril, metformin, Actos and Betapace 80 mg b.i.d. unchanged. He will follow up with his PCP, Dr. Carrillo. The patient was then discharged from our hospital in stable condition with explicit drug and followup care. RONALD/GABRIEL DR: RONALD/richard TID: [id number] CC: Brennan Carrillo
== END 2021-12-27 10:50 | disposition home or self-care (01) ==
LOC: ER 14:27 → ER HOLD 16:18 → INTOOBSV 16:18 → 1 SOUTH 16:49
PROVIDERS: ADMIT Internal Medicine; ATTEND Internal Medicine
DX: J44.9 Chronic obstructive pulmonary disease, unspecified (principal); J18.0 Bronchopneumonia, unspecified organism; J18.9 Pneumonia, unspecified organism; I48.0 Paroxysmal atrial fibrillation; I10 Essential (primary) hypertension; I25.10 Atherosclerotic heart disease of native coronary artery without angina pectoris; E11.9 Type 2 diabetes mellitus without complications; E78.00 Pure hypercholesterolemia, unspecified; E78.5 Hyperlipidemia, unspecified; F17.200 Nicotine dependence, unspecified, uncomplicated; Z85.46 Personal history of malignant neoplasm of prostate; Z90.49 Acquired absence of other specified parts of digestive tract; Z79.899 Other long term (current) drug therapy; Z98.890 Other specified postprocedural states; Z79.82 Long term (current) use of aspirin; Z79.84 Long term (current) use of oral hypoglycemic drugs
CPT/HCPCS: 36415; 71045; 71275; 80053; 82947; 83605; 83880; 84484; 85025; 87040; 93005; 94640; 96365; 96368; 99285; G0378; J0456; J0696; J7050; G0379

== ENCOUNTER 2021-12-29 17:29 | Inpatient (IN) | payer MEDICARE, OTHER ==
[~2021-12-29] VITALS: Ht 188 cm; Wt 110.9 kg
[2021-12-29] MEDS ORDERED: ALBUTEROL SULFATE 8GM INHALER. INH ONE (18:15)
[2021-12-29] MEDS ORDERED: methylPREDNISolone SOD SUCC PF 125 MG/2 ML VIAL. IV ONE (18:15)
[2021-12-29] MEDS ORDERED: IV RINGERS SOLUTION,LACTATED 1,000 ML IV SCH (18:15)
--- NOTE | 2021-12-29 18:40 | EKG ---
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
[2021-12-29 18:49] LABS: BASO % 0 % (0-3); EOS % 0 % (0-3); HEMATOCRIT 40.4 % (39.0-53.0); HEMOGLOBIN 13.2 g/dL (13.0-17.5); LYMPH % 20 % (24-48); MEAN CORPUSCULAR HEMOGLOBIN 29 pg (25-35); MEAN CORPUSCULAR HGB CONC 33 g/dL (31-37); MEAN CORPUSCULAR VOLUME 88 fL (79-100); MONO # 0.7 x10^3/uL (0.0-1.1); MONO % 14 % (0-9); NEUT # 3.2 x10^3uL (1.8-7.7); NEUT % 65 % (31-73); PLATELET COUNT 252 x10^3/uL (140-400); RED BLOOD COUNT 4.59 x10^6/uL (4.30-5.70); RED CELL DISTRIBUTION WIDTH 17.6 % (11.5-14.5)
--- NOTE | 2021-12-29 19:07 | RAD ---
Single view chest dated 12/29/2021 7:04 PM: COMPARISON: 12/26/2021 Clinical Indication: Dyspnea. Findings: Single upright portable exam of the chest was performed. Heart and mediastinal contours are stable. P atchy and linear perihilar opacities, similar to prior study. No pleural effusion. No pneumothorax. IMPRESSION: 1. Patchy perihilar airspace disease, similar to prior study. Electronically signed by: Terry Back MD (12/29/2021 7:05 PM) [facility]
[2021-12-29] MEDS ORDERED: AZITHROMYCIN 250 MG TABLET. PO ONE (19:15)
--- NOTE | 2021-12-29 19:24 | PHYS DOC ---
Past History Past Medical History: Arrhythmia, Diabetes, High Cholesterol, Hypertension Additional Past Medical Histor: RBBB Past Surgical History: Cholecystectomy, Other Additional Past Surgical Histo: prostatectomy for cancer of prostate; wisdom teeth Smoking: Quit Less Than 1 Year Alcohol Use: None General Adult EDM: Chief Complaint: SHORTNESS OF BREATH HPI: HPI: " .. I ve been a lot more short of breath today.. some coughing.. almost like when I was admitted before... My ankles are more swollen..." "Tonight I am feeling a little weak.." Patient is a 80-year-old male who presents with who presents with increased dyspnea and hypoxia on room air. Patient initially satting in the 80s on arrival. Patient required 3 L to maintain saturations above 94%. Initial ABG shows a pH of 7.3 CO2 of 65 O2 26 bicarb 33.1-venous gas. Patient does not have home oxygen. Patient has significant past medical history of proximal atrial fibrillation, diabetes, hyperlipidemia, essential hypertension, history of prostate cancer,(post prostatectomy). COPD, more than [id number] smoking history. Patient states he has not smoked for the past several months. Patient denies any specific ill contacts. Patient denies any recent travel. Patient denies any history immunosuppression. Patient not currently on steroids or antibiotics. Patient is on a blood anticoagulant thought to be possibly Eliquis that he takes twice a day. Patient also takes a daily baby aspirin. Patient states he is not had any recent diuretics. Patient has had flu vaccine, COVID vaccine x2 and a Pneumovax reportedly. Patient does not remember if he is had a zoster vaccine. Patient has recently been hospitalized back on 12/26/2021 for exacerbation of COPD and episodic/ paroxysmal atrial fibrillation. Patient does have some issues remembering recall of current meds. Patient bed side glucose was checked and was low 20's. After D 50 IV the pt. memory did im prove. Pt. patient normally follows with Dr. Bryan. Review of Systems: Review of Systems: Constitutional: Denies fever or chills Eyes: Denies change in visual acuity HENT: Denies nasal congestion or sore throat Respiratory: Complains of cough and shortness of breath Cardiovascular: Denies chest pain or edema GI: Denies abdominal pain, nausea, vomiting, bloody stools or diarrhea : Denies dysuria Musculoskeletal: Denies back pain or joint pain. Complaints of generalized weakness Integument: Denies rash Neurologic: Denies headache, focal weakness or sensory changes Endocrine: Denies polyuria or polydipsia Lymphatic: Denies swollen glands Psychiatric: Denies depression or anxiety Family History: Family History: Noncontributory to presentation Current Medications: Current Meds: Current Medications Medications (Trade) Dose Ordered Sig/Lauren Start Time Stop Time Status Last Admin Dose Admin Albuterol Sulfate (Ventolin Hfa Inhaler) 2 puff 1X ONCE 12/29/21 18:15 12/29/21 18:22 DC 12/29/21 18:15 2 PUFF Azithromycin (Zithromax) 500 mg 1X ONCE 12/29/21 19:15 12/29/21 19:16 UNV Lactated Ringer's 1,000 ml @ 1,000 mls/hr Q1H 12/29/21 18:15 12/29/21 19:14 DC 12/29/21 19:11 1,000 MLS/HR Methylprednisolone Sodium Succinate (SOLU-Medrol 125MG VIAL) 125 mg 1X ONCE 12/29/21 18:15 12/29/21 18:22 DC 12/29/21 19:10 125 MG Allergies: Allergies: Allergies Coded Allergies Type Severity Reaction Last Updated Verified No Known Drug Allergies 07/29/20 No Physical Exam: PE: Constitutional: Mild to moderate distress, non-toxic appearance. [] HENT: Normocephalic, atraumatic, bilateral external ears normal, oropharynx moist, no oral exudates, nose normal. [] Eyes: PERRLA, EOMI, conjunctiva normal, no discharge. [] Neck: Normal range of motion, no tenderness, supple, no stridor. No bruits appreciated Cardiovascular:Heart rate regular rhythm, no murmur bedside monitor shows a sinus rhythm in the 60s. Does appear to have a bundle branch block. Lungs & Thorax: Bilateral breath sounds equal at apex with scattered wheezes auscultation. Does have some bi- basilar crackles/rhonchi. Pt. does have occasional coughing spasms that are nonproductive.] Abdomen: Bowel sounds normal, soft, no tenderness, no masses, no pulsatile masses. Old surgery scars.. Skin: Warm, dry, no erythema, no rash. Poor turgor. Back: No tenderness, no CVA tenderness. [] Extremities: No tenderness, no cyanosis, no clubbing, ROM intact, no edema. No cording appreciated in legs. Does have some arthritic changes. Neurologic: Alert and oriented X 3, moves all extremities on request, does have distal sensory,, no focal deficits noted. [] Psychologic: Affect mildly anxious, judgement normal, mood normal. (Patient mental state did improve after D-50 IV.) Current Patient Data: Labs: Laboratory Tests Test 12/29/21 17:50 White Blood Count 5.0 x10^3/uL (4.0-11.0) Red Blood Count 4.59 x10^6/uL (4.30-5.70) Hemoglobin 13.2 g/dL (13.0-17.5) Hematocrit 40.4 % (39.0-53.0) Mean Corpuscular Volume 88 fL (79-100) Mean Corpuscular Hemoglobin 29 pg (25-35) Mean Corpuscular Hemoglobin Concent 33 g/dL (31-37) Red Cell Distribution Width 17.6 % (11.5-14.5) H Platelet Count 252 x10^3/uL (140-400) Neutrophils (%) (Auto) 65 % (31-73) Lymphocytes (%) (Auto) 20 % (24-48) L Monocytes (%) (Auto) 14 % (0-9) H Eosinophils (%) (Auto) 0 % (0-3) Basophils (%) (Auto) 0 % (0-3) Neutrophils # (Auto) 3.2 x10^3uL (1.8-7.7) Lymphocytes # (Auto) 1.0 x10^3/uL (1.0-4.8) Monocytes # (Auto) 0.7 x10^3/uL (0.0-1.1) Eosinophils # (Auto) 0.0 x10^3/uL (0.0-0.7) Basophils # (Auto) 0.0 x10^3/uL (0.0-0.2) Prothrombin Time 12.5 SEC (9.4-11.4) H Prothrombin Time INR 1.2 (0.9-1.1) H Activated Partial Thromboplast Time 42 SEC (23-33) H D-Dimer ([place]) 0.30 mg/L (0.00-0.50) Troponin I High Sensitivity 18 ng/L (4-75) Vital Signs: Vital Signs Date Time Temp Pulse Resp B/P (MAP) Pulse Ox O2 Delivery O2 Flow Rate FiO2 12/29/21 17:29 98.1 65 36 176/77 (110) 82 Room Air 12/29/21 17:29 0.21 EKG: EKG: My interpretation of EKG shows a sinus rhythm at 65 bpm. Does have bundle branch block. Does have anterior lateral changes. But no findings of acute STEMI of contralateral changes. Time of EKG is 1744 hrs. [] My interpretation second EKG shows a sinus rhythm at 77 bpm. Does have a bundle branch block. RVH. No significant interval change from prior EKG. Time of this EKG is 2006 hrs. Radiology/Procedures: Radiology/Procedures: [][address] [id number] IMAGING REPORT Signed PATIENT: JOHN ALARCON CACCOUNT: [id number] : 1940 LOCATION: ER AGE: 80 SEX: M EXAM STATUS: REG ER ORD. PHYSICIAN: RADHA CAMPOVERDE MD REASON: DYSPNEA PROCEDURE: PORTABLE CHEST 1V Single view chest dated 12/29/2021 7:04 PM: COMPARISON: 12/26/2021 Clinical Indication: Dyspnea. Findings: Single upright portable exam of the chest was performed. Heart and mediastinal contours are stable. Patchy and linear perihilar opacities, similar to prior study. No pleural effusion. No pneumothorax. IMPRESSION: 1. Patchy perihilar airspace disease, similar to prior study. Electronically signed by: Terry Back MD (12/29/2021 7:05 PM) [facility] [place]CTATED AND SIGNED BY: TERRY BACK MD DATE: 12/29/21 1904 CC: RADHA CAMPOVERDE MD; DAE BRYAN MD ~MTH0 0 Heart Score: C/O Chest Pain: No HEART Score for Chest Pain: HEART Score for Chest Pain Response (Comments) Value History Moderately Suspicious 1 ECG Nonspecific Repolarizatio 1 Age > 65 2 Risk Factors 1 or 2 Risk Factors 1 Troponin < Normal Limit 0 Total 5 Risk Factors: Risk Factors: DM, Current or recent (<one month) smoker, HTN, HLP, family history of CAD, obesity. Risk Scores: Score 0 - 3: 2.5% MACE over next 6 weeks - Discharge Home Score 4 - 6: 20.3% MACE over next 6 weeks - Admit for Clinical Observation Score 7 - 10: 72.7% MACE over next 6 weeks - Early Invasive Strategies Course & Med Decision Making: Course & Med Decision Making Pertinent Labs and Imaging studies reviewed. (See chart for details) Critical care 30 min. Pt. required 3 IV dosages of D50 to maintain glucose levels. Discussed presentation, testing and treatment plan with Dr. Harrison. Advised to admit to his service on a D5W drip at 100 cc an hour. Impression: 1. COPD Exacerbation 2., Respiiratory Failure- Hypoxia ( requires 2 lit NC- Sats 94-96%) 3. Hx Afib- currently Sinus 4, Hypoglycemia- 28 ( Pt. denies any Insulin use - oral meds) 5 CHF- BNP 889 6. Mild hypokalemia 3.1 [] Dragon Disclaimer: Dragon Disclaimer: This electronic medical record was generated, in whole or in part, using a voice recognition dictation system. Departure Departure: Referrals: DAE BRYAN MD (PCP) Dragon Disclaimer This chart was dictated in whole or in part using Voice Recognition software in a busy, high-work load, and often noisy Emergency Department environment. It may contain unintended and wholly unrecognized errors or omissions. Dragon Disclaimer This chart was dictated in whole or in part using Voice Recognition software in a busy, high-work load, and often noisy Emergency Department environment. It may contain unintended and wholly unrecognized errors or omissions. RADHA CAMPOVERDE MD Dec 29, 2021 19:24
[2021-12-29 19:29] LABS: BARBITURATES NEG (NEG); BENZODIAZEPINES NEG (NEG); CANNABINOIDS NEG (NEG); COCAINE NEG (NEG); METHADONE NEG (NEG); OPIATES NEG (NEG); PHENCYCLIDINE NEG (NEG)
[2021-12-29 19:32] LABS: ALBUMIN 3.4 g/dL (3.4-5.0); CALCIUM 8.3 mg/dL (8.5-10.1); CREATININE 0.9 mg/dL (0.7-1.3); DIRECT BILIRUBIN 0.1 mg/dL (0.0-0.2); GFR 81.6; MAGNESIUM 2.1 mg/dL (1.8-2.4); POTASSIUM 3.1 mmol/L (3.5-5.1); TOTAL BILIRUBIN 0.3 mg/dL (0.2-1.0); TOTAL PROTEIN 6.6 g/dL (6.4-8.2)
[2021-12-29 19:35] LABS: AMPHETAMINE/METHAMPHETAMINE NEG (NEG)
[2021-12-29 19:41] LABS: BACTERIA,URINE 0 /HPF (0-FEW); CLARITY,URINE CLEAR; COLOR,URINE YELLOW; GLUCOSE,URINE NEG (NEG); NITRITE,URINE NEG (NEG); RBC,URINE OCC /HPF (0-2); SQUAMOUS EPITHELIAL CELL,UR OCC /LPF; UROBILINOGEN,URINE 0.2 mg/dL (0.2 mg/dL); WBC,URINE 0 /HPF (0-4)
[2021-12-29] MEDS ORDERED: DEXTROSE 50% 25 GM / 50ML DISP.SYRIN. IV ONE ×3 (19:41→20:15)
[2021-12-29 19:56] LABS: INFLUENZA A PATIENT POSITIVE (NEGATIVE); INFLUENZA B PATIENT NEGATIVE (NEGATIVE)
[2021-12-29] MEDS ORDERED: FUROSEMIDE 40 MG/4 ML VIAL IVP ONE (20:15)
[2021-12-29] MEDS ORDERED: IV DEXTROSE 10% 1,000 ML IV ONE (20:15)
[2021-12-29] MEDS ORDERED: POTASSIUM CHLORIDE 20 MEQ TABLET.ER. PO ONE (20:15)
[2021-12-29] MEDS ORDERED: ONDANSETRON PF 4 MG/2 ML VIAL. IVP PRN (20:30)
[2021-12-29] MEDS ORDERED: ACETAMINOPHEN 325 MG TABLET PO PRN (20:30)
[2021-12-29] MEDS ORDERED: IV DEXTROSE 5% 1,000 ML IV ONE (20:30)
[2021-12-29 21:45] VITALS: BP 152/78
[2021-12-29] MEDS: ALBUTEROL SULFATE 8GM INHALER. INH SCH (22:00)
[2021-12-29] MEDS ORDERED: IV DEXTROSE 5% 1,000 ML IV SCH (23:00)
[2021-12-29] MEDS: ATORVASTATIN CALCIUM 20 MG TABLET PO SCH (23:48)
[2021-12-29] MEDS: DABIGATRAN ETEXILATE 150 MG CAPSULE. PO SCH (23:49)
[2021-12-29] MEDS: GABAPENTIN 100 MG CAPSULE. PO SCH (23:49)
[2021-12-30 05:00] VITALS: BP 132/61
[2021-12-30] MEDS ORDERED: FUROSEMIDE 40 MG TABLET PO ONE (06:00)
[2021-12-30] MEDS ORDERED: POTASSIUM CHLORIDE 20 MEQ TABLET.ER. PO ONE (06:00)
--- NOTE | 2021-12-30 06:45 | EKG ---
[address] [address] Test Date: 2021-12-29 Test Time: 20:07:31 Pat Name: JOHN ALARCON Department: Room: 109 A Gender: M Cardiac Care Nurse: SAMSON : 1940 Requested By: RADHA CAMPOVERDE Order Number: [id number] Reading MD: Osvaldo Rodriguez MD Measurements Intervals [place] Rate: 77 P: 90 [place]: 174 QRS: 90 QRSD: 140 T: 25 QT: 412 QTc: 468 Interpretive Statements SINUS RHYTHM RBBB Electronically Signed On 01-01-2022 10:19:34 PROTOTYPE FABRICATOR by Osvaldo Rodriguez MD
[2021-12-30] MEDS: GABAPENTIN 100 MG CAPSULE. PO SCH ×3 (07:43→20:59)
[2021-12-30] MEDS: AZITHROMYCIN 250 MG TABLET. PO SCH (07:44)
[2021-12-30] MEDS: DABIGATRAN ETEXILATE 150 MG CAPSULE. PO SCH ×2 (07:44→20:59)
[2021-12-30] MEDS: LISINOPRIL 20 MG TABLET PO SCH (07:45)
[2021-12-30] MEDS: SOTALOL 80 MG TABLET. PO SCH (07:46)
[2021-12-30] MEDS: ASPIRIN ENTERIC COATED 81 MG TABLET.DR. PO SCH (07:46)
[2021-12-30] MEDS: ALBUTEROL SULFATE 8GM INHALER. INH SCH ×4 (07:47→20:58)
[2021-12-30] MEDS: LACTOBACILLUS RHAMNOSUS GG 1 CAPSULE. PO SCH ×2 (08:56→20:58)
[2021-12-30 11:33] VITALS: BP 134/73
[2021-12-30] MEDS ORDERED: INSULIN LISPRO 300 UNITS/3 ML VIAL. SQ ONE (12:00)
--- NOTE | 2021-12-30 12:41 | HP ---
DATE OF SERVICE: 12/30/2021 ADMIT DATE: 12/29/2021 CHIEF COMPLAINT: Weakness and dizziness. HISTORY OF PRESENT ILLNESS: The patient is a 81-year-old gentleman well known to me. I just discharged him from the hospital 24 hours ago with pneumonia, sent home on oral antibiotics. He was doing well. The workup in the ED showed that he was significantly hypoglycemic. He is diabetic. He is on 3 regimens including metformin, Actos and the glimepiride. Blood sugar was 28. He was dizzy, seeing blurred vision. He was still on antibiotics for recent community-acquired pneumonia. He also has cardiac arrhythmia with multiple other medical issues. He is admitted then with symptomatic hypoglycemia. Dextrose solution was ordered. Obviously, his oral hypoglycemics have been held. PAST MEDICAL HISTORY: Significant for advanced lung disease. Unfortunately, he continues to smoke on a daily basis. He has cardiac arrhythmias, type 2 diabetes, hyperlipidemia and hypertension. PAST SURGICAL HISTORY: Prostatectomy for prostate cancer, cholecystectomy. SOCIAL HISTORY: Smoking history as noted. ALLERGIES: He has no recorded drug allergies. CURRENT MEDICATIONS: Include the following: He was on scheduled aspirin, Lipitor, Pradaxa, Neurontin, glimepiride, lisinopril, metformin, Actos and Betapace. FAMILY HISTORY: Noncontributory. REVIEW OF SYSTEMS: Significant for his dietary habits. His a year ago. He has a daughter that lives in town. No COVID exposure. All other systems reviewed and turned to be negative. PHYSICAL EXAMINATION: GENERAL: When I saw him, he was alert and oriented. He has no new complaints. VITAL SIGNS: Oxygen saturations were adequate on room air, blood pressure was 132/61, pulse of 64 and regular. He was afebrile. HEENT: Head is without trauma. Pupils are reactive. Sclerae nonicteric. Oropharynx clear. NECK: Supple, no bruits identified. LUNGS: Good breath sounds. CARDIOVASCULAR: Showed regular heart tones. ABDOMEN: Soft. EXTREMITIES: Showed 2+ edema of the ankles. NEUROLOGIC: Function focally intact. SKIN: Warm and dry. PERTINENT LABORATORY STUDIES: Hemoglobin 13.2 g/dL, white count 5000. Blood sugar was 28 on admission, repeat was up to 109. Cardiac enzymes were negative. ASSESSMENT: 1. A 81-year-old gentleman with symptomatic hypoglycemia. 2. Type 2 diabetes with very poor dietary habits. 3. Recent diagnosis of pneumonia. 4. Cardiac arrhythmia. 5. He is having some recent fall and syncope, which may be contributed by his hypoglycemia. PLAN: 1. Admit to the inpatient unit. 2. Obviously, all 3 oral hypoglycemics were held. 3. Dextrose solution. 4. Frequent Accu-Cheks. 5. Continue Betapace, Pradaxa and lisinopril. RONALD/DURGA DR: Nel TID: [id number] CC: Radha Carrillo
[2021-12-30 14:33] LABS: BASO % 0 % (0-3); EOS % 0 % (0-3); HEMOGLOBIN 12.6 g/dL (13.0-17.5); LYMPH # 0.9 x10^3/uL (1.0-4.8); LYMPH % 17 % (24-48); MEAN CORPUSCULAR HEMOGLOBIN 29 pg (25-35); MEAN CORPUSCULAR HGB CONC 32 g/dL (31-37); MEAN CORPUSCULAR VOLUME 89 fL (79-100); MONO # 0.6 x10^3/uL (0.0-1.1); MONO % 12 % (0-9); NEUT # 3.7 x10^3uL (1.8-7.7); NEUT % 71 % (31-73); PLATELET COUNT 239 x10^3/uL (140-400); RED BLOOD COUNT 4.39 x10^6/uL (4.30-5.70); RED CELL DISTRIBUTION WIDTH 17.5 % (11.5-14.5); WHITE BLOOD COUNT 5.2 x10^3/uL (4.0-11.0)
[2021-12-30 14:44] LABS: CALCIUM 8.1 mg/dL (8.5-10.1); CREATININE 1.1 mg/dL (0.7-1.3); GFR 64.6; POTASSIUM 3.8 mmol/L (3.5-5.1)
[2021-12-30 15:32] VITALS: BP 143/73
[2021-12-30 19:56] VITALS: BP 145/72
[2021-12-30] MEDS: ATORVASTATIN CALCIUM 20 MG TABLET PO SCH (20:59)
[2021-12-30 22:20] VITALS: BP 151/68
[2021-12-31 05:25] VITALS: BP 154/71
[2021-12-31] MEDS: ALBUTEROL SULFATE 8GM INHALER. INH SCH ×4 (07:44→20:29)
[2021-12-31] MEDS: LACTOBACILLUS RHAMNOSUS GG 1 CAPSULE. PO SCH ×2 (07:44→20:30)
[2021-12-31] MEDS: SOTALOL 80 MG TABLET. PO SCH (07:45)
[2021-12-31] MEDS: GABAPENTIN 100 MG CAPSULE. PO SCH ×3 (07:45→20:30)
[2021-12-31] MEDS: ASPIRIN ENTERIC COATED 81 MG TABLET.DR. PO SCH (07:45)
[2021-12-31] MEDS: LISINOPRIL 20 MG TABLET PO SCH (07:45)
[2021-12-31] MEDS: AZITHROMYCIN 250 MG TABLET. PO SCH (07:45)
[2021-12-31] MEDS: DABIGATRAN ETEXILATE 150 MG CAPSULE. PO SCH ×2 (07:45→20:29)
[2021-12-31 11:49] VITALS: BP 183/93
--- NOTE | 2021-12-31 11:52 | PN ---
DATE: 12/31/2021 ATTENDING PHYSICIAN: Dr. Harrison. SUBJECTIVE: Very weak, dyspneic, with minimal exertion. Sugars are marginal, but better. OBJECTIVE FINDINGS: VITAL SIGNS: Blood pressure this morning is 150/70, pulse is 70 and regular. He is afebrile. Oxygen saturation 92% on 2 liters by nasal cannula. HEENT: Head is without trauma. Pupils are reactive. Sclerae nonicteric. Oropharynx is clear. NECK: Supple, no bruits. LUNGS: Minimal wheezing. CARDIOVASCULAR: Regular heart tones. ABDOMEN: Soft. EXTREMITIES: Show 2+ edema. NEUROLOGIC: Focally intact. LABORATORY DATA: Nonfasting blood sugar 164. ASSESSMENT: 1. A 81-year-old gentleman with symptomatic hypoglycemia. He was on 3 oral hypoglycemics and he was not eating properly. 2. Type 2 diabetes. 3. Recent diagnosed pneumonia. 4. Cardiac arrhythmia. 5. Advanced chronic obstructive pulmonary disease due to continued tobacco use. PLAN: 1. Admit to the inpatient unit. 2. Oral hypoglycemics on hold. 3. Frequent Accu-Cheks. 4. Dextrose solution can be discontinued. 5. Wean down supplemental oxygen. 6. Tentative discharge plans for tomorrow. RONALD/GABRIEL DR: RONALD/richard TID: [id number] CC: Brennan Carrillo Md
[2021-12-31 15:22] VITALS: BP 175/87
[2021-12-31 19:53] VITALS: BP_SYST 154; BP_SYST 166; BP_DIAS 61; BP_DIAS 78
[2021-12-31] MEDS: ATORVASTATIN CALCIUM 20 MG TABLET PO SCH (20:30)
[2021-12-31 23:17] VITALS: BP 175/76
[2022-01-01 03:05] VITALS: BP 152/81
[2022-01-01 05:47] VITALS: BP 166/89
[2022-01-01] MEDS: GABAPENTIN 100 MG CAPSULE. PO SCH ×3 (07:40→20:54)
[2022-01-01] MEDS: LISINOPRIL 20 MG TABLET PO SCH (07:41)
[2022-01-01] MEDS: DABIGATRAN ETEXILATE 150 MG CAPSULE. PO SCH ×2 (07:41→20:54)
[2022-01-01] MEDS: ASPIRIN ENTERIC COATED 81 MG TABLET.DR. PO SCH (07:41)
[2022-01-01] MEDS: LACTOBACILLUS RHAMNOSUS GG 1 CAPSULE. PO SCH ×2 (07:41→20:54)
[2022-01-01] MEDS: AZITHROMYCIN 250 MG TABLET. PO SCH (07:41)
[2022-01-01] MEDS: SOTALOL 80 MG TABLET. PO SCH (07:41)
[2022-01-01] MEDS: ALBUTEROL SULFATE 8GM INHALER. INH SCH ×4 (07:42→20:00)
[2022-01-01 11:01] VITALS: BP 162/71
--- NOTE | 2022-01-01 11:44 | PN ---
DATE: 01/01/2022 ATTENDING PHYSICIAN: Dr. Harrison. SUBJECTIVE: Still very weak. There is a huge anxiety component, which causes symptomatic dyspnea. His room air sats are actually quite adequate. OBJECTIVE FINDINGS: VITAL SIGNS: Blood pressure this morning is 166/89, pulse is 70 and regular. He is afebrile. Oxygen saturation 97% on 2 liters by nasal cannula. HEENT: Head is without trauma. Pupils are reactive. Sclerae nonicteric. Oropharynx clear. NECK: Supple. LUNGS: Good breath sounds. CARDIOVASCULAR: Showed regular heart tones. ABDOMEN: Soft. EXTREMITIES: Showed 2+ edema. NEUROLOGIC: Very anxious. LABORATORY DATA: Nonfasting blood sugar is 168. ASSESSMENT: 1. A 81-year-old gentleman with symptomatic hypoglycemia due to diabetes and dietary indiscretion. All 3 hypoglycemics have been held. 2. Exacerbation of chronic obstructive pulmonary disease with acute on chronic respiratory failure. 3. Strong anxiety component causing symptomatic dyspnea. 4. Secondary edema. 5. Continued tobacco use. 6. History of cardiac arrhythmias. PLAN: 1. I ordered oral dose of Lasix. 2. I explained to him he does not need supplemental oxygen. They will not pay for this given the fact that his saturations are to good. 3. Because of generalized weakness and inability to care for self, he has agreed to go to subacute rehab. We will start making phone calls. His preference is [facility]. 4. PT, OT evaluation. RONALD/JULIO DR: Nel TID: [id number]
[2022-01-01] MEDS ORDERED: FUROSEMIDE 80 MG TABLET PO SCH (12:15)
[2022-01-01 16:00] VITALS: BP 164/71
[2022-01-01 19:00] VITALS: BP 170/72
[2022-01-01] MEDS: ATORVASTATIN CALCIUM 20 MG TABLET PO SCH (20:54)
[2022-01-02 00:15] VITALS: BP 162/84
[2022-01-02 06:10] VITALS: BP 152/84
[2022-01-02] MEDS: ASPIRIN ENTERIC COATED 81 MG TABLET.DR. PO SCH (08:58)
[2022-01-02] MEDS: SOTALOL 80 MG TABLET. PO SCH (08:58)
[2022-01-02] MEDS: LACTOBACILLUS RHAMNOSUS GG 1 CAPSULE. PO SCH ×2 (08:58→21:08)
[2022-01-02] MEDS: AZITHROMYCIN 250 MG TABLET. PO SCH (08:58)
[2022-01-02] MEDS: DABIGATRAN ETEXILATE 150 MG CAPSULE. PO SCH ×2 (08:58→21:08)
[2022-01-02] MEDS: GABAPENTIN 100 MG CAPSULE. PO SCH ×3 (08:58→21:08)
[2022-01-02] MEDS: LISINOPRIL 20 MG TABLET PO SCH (08:59)
[2022-01-02] MEDS: ALBUTEROL SULFATE 8GM INHALER. INH SCH ×4 (08:59→21:07)
[2022-01-02 11:05] VITALS: BP 160/78
--- NOTE | 2022-01-02 12:33 | DS ---
DATE OF DISCHARGE: 01/02/2022 ATTENDING PHYSICIAN: Dr. Harrison. FINAL DISCHARGE DIAGNOSES: 1. Symptomatic hypoglycemia. 2. Type 2 diabetes. 3. Exacerbation of chronic obstructive pulmonary disease. 4. Acute on chronic congestive heart failure. 5. Secondary edema. 6. Continued tobacco use. 7. History of cardiac arrhythmia. HISTORY AND PHYSICAL: The patient aged 81 is well known to us from previous admission. He was just here for pneumonia. He came in because he was weak and he had a blood sugar of 28. PHYSICAL EXAMINATION: Please see the dictated note. PERTINENT LABORATORY AND X-RAY STUDIES: Subsequent blood sugars were drawn. He was treated with 10% and 5% dextrose. Coming off of the oral hypoglycemics, his sugars within the mid 100s and better. Hemoglobin was 13.2 grams. White count was 5800. Serology negative for influenza and coronavirus. COURSE IN THE HOSPITAL: He was admitted. We weaned down his supplemental oxygen. Home meds were continued, but we held his 3 oral hypoglycemics. He was still marginal when it came to strength, he was still very weak. Physical therapy saw him in consultation. Their recommendation is on the chart. On the fourth hospital day, he has agreed to go to subacute rehab at [facility]. He had adequate saturation on room air, but he insisted on oxygen more for a psychologic tool. His discharge meds are as follows: They have been simplified. We will continue his aspirin 1 daily, Pradaxa twice a day, Lipitor daily, Neurontin daily, Mucinex, lisinopril 40 mg p.o. daily, Betapace 80 mg b.i.d. For now, we have held his glimepiride, metformin, and Actos. He could be followed up at [facility] and should sugars go up accordingly they can be restarted. He is a FULL CODE per advanced directives. The patient was then discharged from our hospital in stable condition with explicit drug and followup care. TOTAL DISCHARGE TIME: [address]: RONALD/richard TID: [id number] CC: DAE BRYAN
[2022-01-02 15:25] VITALS: BP 144/87
[2022-01-02 19:00] VITALS: BP 157/78
[2022-01-02] MEDS: ATORVASTATIN CALCIUM 20 MG TABLET PO SCH (21:08)
[2022-01-02 23:00] VITALS: BP 152/85
[2022-01-03 05:00] VITALS: BP 131/71
[2022-01-03] MEDS: AZITHROMYCIN 250 MG TABLET. PO SCH (08:18)
[2022-01-03] MEDS: LISINOPRIL 20 MG TABLET PO SCH (08:18)
[2022-01-03] MEDS: LACTOBACILLUS RHAMNOSUS GG 1 CAPSULE. PO SCH (08:18)
[2022-01-03] MEDS: ASPIRIN ENTERIC COATED 81 MG TABLET.DR. PO SCH (08:18)
[2022-01-03] MEDS: SOTALOL 80 MG TABLET. PO SCH (08:18)
[2022-01-03] MEDS: GABAPENTIN 100 MG CAPSULE. PO SCH ×2 (08:19→13:00)
[2022-01-03] MEDS: DABIGATRAN ETEXILATE 150 MG CAPSULE. PO SCH (08:19)
[2022-01-03] MEDS: ALBUTEROL SULFATE 8GM INHALER. INH SCH ×2 (09:18→12:59)
[2022-01-03 12:05] VITALS: BP 132/81
== END 2022-01-03 14:30 | DRG 637 ==
LOC: ER 17:29 → 1 SOUTH 20:28
PROVIDERS: ADMIT Hospitalist; ATTEND Hospitalist
DX: E11.649 Type 2 diabetes mellitus with hypoglycemia without coma (principal); I50.43 Acute on chronic combined systolic (congestive) and diastolic (congestive) heart failure; J18.9 Pneumonia, unspecified organism; J96.21 Acute and chronic respiratory failure with hypoxia; J96.91 Respiratory failure, unspecified with hypoxia; J44.0 Chronic obstructive pulmonary disease with (acute) lower respiratory infection; J44.1 Chronic obstructive pulmonary disease with (acute) exacerbation; Z20.822 Contact with and (suspected) exposure to COVID-19; E78.00 Pure hypercholesterolemia, unspecified; E78.5 Hyperlipidemia, unspecified; E87.6 Hypokalemia; I49.9 Cardiac arrhythmia, unspecified; F41.9 Anxiety disorder, unspecified; I11.0 Hypertensive heart disease with heart failure; I48.0 Paroxysmal atrial fibrillation; F17.200 Nicotine dependence, unspecified, uncomplicated; Z79.82 Long term (current) use of aspirin; Z79.899 Other long term (current) drug therapy; Z85.46 Personal history of malignant neoplasm of prostate; Z90.49 Acquired absence of other specified parts of digestive tract
CPT/HCPCS: 36415; 71045; 71275; 80048; 80053; 80076; 80307; 81001; 82550; 82803; 82947; 83605; 83690; 83735; 83880; 84443; 84484; 85025; 85379; 85610; 85730; 87040; 87426; 87428; 93005; 94640; 96361; 96374; 96375; G0238; J1815; J1940; J2930; J7120; 94664; 97530; 99285-25